=== PATIENT | female | born 1990 | race Caucasian/White ===

== ENCOUNTER → 2017-05-09 13:58 | Outpatient (CLI) | payer OTHER, SELFPAY ==
--- NOTE | 2017-05-09 14:04 | US_ITS ---
US OB transvaginal HISTORY: ITS.REASON: OB US FOR DATES ORDERING PHYSICIAN: Toni Rivera MD PATIENT AGE: 26 years COMPARISON: None FINDINGS: An intrauterine gestational sac is present with a pole with a crown-rump length of 2.02cm correlating to gestational age of 8 weeks 5 days. heart tones are present. Yolk sac is noted. The estimated due date by ultrasound is 12/14/2017. Adnexa: Unremarkable. IMPRESSION: Live intrauterine gestation at 8 weeks 5 days as described above.
== END ==
PROVIDERS: Family Provider Emergency Medicine; PCP Nurse Practitioner Obstetrics & Gynecology; Visit Provider Nurse Practitioner Obstetrics & Gynecology
DX: O26.841 Uterine size-date discrepancy, first trimester (principal)
CPT/HCPCS: 76830

== ENCOUNTER 2017-06-20 13:18 | Emergency (ER) | payer OTHER, SELFPAY ==
[2017-06-20 14:01] VITALS: BP 115/71; PULSE 85; RESP 20; TEMP 36.6; O2SAT 98; BMI 21.9
--- NOTE | 2017-06-20 14:40 | HMH.EDUTC ---
[place] Disposition Clinical Impression: Nasal congestion with rhinorrhea, Cough Qualifiers: Weeks of gestation: 14 weeks Qualified Code(s): Z3A.14 - 14 weeks gestation of Disposition: Home, Self-Care Condition on Discharge: Good Instructions: DI for Viral Upper Respiratory Infection -- Adult Additional Instructions: * Use caution in any medication you take. you MUST ensure it is safe for baby and you. * The attached education is for everyone with upper respiratory viruses, not specifically women so if it suggest medication, be sure to make sure it is safe. * Your symptoms could be viral but they could be related to hormones as well. Viruses can take 7-14 days to run its course. * sinus rinses * Monitor Temp. FU if fever develops * Encourage fluids, water, gatorade, powerade, pedialyte if infant/toddler/child * If sore throat, warm salt water gargles, warm fluids, sore throat lozenges * sleep elevated * humidifier/vaporizer * Ask Dr. Rivera if he approves of any decongestants and flonase. If so, 2 sprays each nostril daily but may take 2-3 days to notice improvement with it. Prescriptions: Fluticasone Propionate [Flonase 50mcg nasal spray 16gm] 2 spr NS DAILY #1 bottle Referrals: Tnoi Rivera MD [Staff Physician] - (Return to clinic IMMEDIATELY for new or worsening symptoms OR no noticeable improvement over the next 48-72 hours. 911 for difficulty breathing or swallowing. Call Dr. Butcher today regarding medications. She him immediately for ANY abdominal pain, leaking, bleeding, change in baby movement. ) Forms: Work/School Release Time of Disposition: 15:00 Medical Decision Making Vital Signs: 06/20/17 14:01 Temperature 97.9 F Temperature Source Temporal Artery Scan Pulse Rate [Right Brachial] 85 Respiratory Rate 20 Blood Pressure [Right Arm] 115/71 Blood Pressure Mean [Right Arm] 85 Blood Pressure Source [Right Arm] Automatic Cuff Blood Pressure Position [Right Arm] Sitting 02 Sat by Pulse Oximetry 98 Oxygen Delivery Method Room Air - Paulie Inquiry Pt receiving controlled substance: No [place] HPI - General Stated complaint: cough congestion Time Seen by Provider: 06/20/17 14:40 Mode of Arrival: Ambulatory Source of Information: Patient Limitations: No Limitations Description of Symptoms (Recalled from Triage Doc. by RN): CHEST AND SINUS CONGESTION HEENT Symptoms (Recalled from RN notes): No Resp Symptoms (Recalled from RN notes): Yes (CHEST AND SINUS CONGESTION) Skin Symptoms (Recalled from RN notes): No MS Symptoms (Recalled from RN notes): No Functional Status (Recalled from RN notes): N/A - History of Present Illness Provider Complaint: c/o nasal congestion, rhinorrhea, head pressure and cough x 5-6 days. Cough worse at night. Robitussin helps but restless at night. Always that way when I take cough syrups . Humidifier/vaporizer has helped with nasal congestion but not head pressure or nose pouring . Currently 14.5 weeks . Denies abdominal pain, vaginal leaking or bleeding. Barely feeling baby movment but unchanged since feeling sick. - Related Data Home Medications Medication Instructions Recorded Confirmed dicyclomine 20 mg tablet 20 mg PO QID 05/21/17 1 tab PO QDAY 05/21/17 vitamin,calcium,svpvngxx-mmqn-qnwup acid tablet Previous Rx's Medication Instructions Recorded Fluticasone Propionate [Flonase 2 spr NS DAILY #1 bottle 06/20/17 50mcg nasal spray 16gm] Allergies Allergy/AdvReac Type Severity Reaction Status Date / Time No Known Allergies Allergy Verified 06/20/17 14:11 - Worker's Comp Is this a Worker's Comp case?: No [facility] History I have reviewed the patient's past medical history: Yes Medical History: Denies:: Cancer, Diabetes Mellitus Type 1, Diabetes Mellitus Type 2, MRSA Other Medical History: Reports: Other (colitis) Other Surgeries: Yes: Other (leap, dental, tubes in ears) Amputat
--- NOTE | 2017-06-20 14:52 | ED_ITS ---
[facility] [place] Clinical Impression: Nasal congestion with rhinorrhea, Cough Qualifiers: Weeks of gestation: 14 weeks Qualified Code(s): Z3A.14 - 14 weeks gestation of Disposition: Home, Self-Care Condition on Discharge: Good Instructions: DI for Viral Upper Respiratory Infection -- Adult Additional Instructions: * Use caution in any medication you take. you MUST ensure it is safe for baby and you. * The attached education is for everyone with upper respiratory viruses, not specifically women so if it suggest medication, be sure to make sure it is safe. * Your symptoms could be viral but they could be related to hormones as well. Viruses can take 7-14 days to run its course. * sinus rinses * Monitor Temp. FU if fever develops * Encourage fluids, water, gatorade, powerade, pedialyte if infant/toddler/ child * If sore throat, warm salt water gargles, warm fluids, sore throat lozenges * sleep elevated * humidifier/vaporizer * Ask Dr. Rivera if he approves of any decongestants and flonase. If so, 2 sprays each nostril daily but may take 2-3 days to notice improvement with it. Prescriptions: Fluticasone Propionate [Flonase 50mcg nasal spray 16gm] 2 spr NS DAILY #1 bottle Referrals: Toni Rivera MD [Staff Physician] - (Return to clinic IMMEDIATELY for new or worsening symptoms OR no noticeable improvement over the next 48-72 hours. 911 for difficulty breathing or swallowing. Call Dr. Butcher today regarding medications. She him immediately for ANY abdominal pain, leaking, bleeding, change in baby movement. ) Forms: Work/School Release Time of Disposition: 15:00 Medical Decision Making Vital Signs: 06/20/17 14:01 Temperature 97.9 F Temperature Source Temporal Artery Scan Pulse Rate [Right Brachial] 85 Respiratory Rate 20 Blood Pressure [Right Arm] 115/71 Blood Pressure Mean [Right Arm] 85 Blood Pressure Source [Right Arm] Automatic Cuff Blood Pressure Position [Right Arm] Sitting 02 Sat by Pulse Oximetry 98 Oxygen Delivery Method Room Air - Paulie Inquiry Pt receiving controlled substance: No [facility] [place] - General Stated complaint: cough congestion Time Seen by Provider: 06/20/17 14:40 Mode of Arrival: Ambulatory Source of Information: Patient Limitations: No Limitations Description of Symptoms (Recalled from Triage Doc. by RN): CHEST AND SINUS CONGESTION HEENT Symptoms (Recalled from RN notes): No Resp Symptoms (Recalled from RN notes): Yes (CHEST AND SINUS CONGESTION) Skin Symptoms (Recalled from RN notes): No MS Symptoms (Recalled from RN notes): No Functional Status (Recalled from RN notes): N/A - History of Present Illness Provider Complaint: c/o nasal congestion, rhinorrhea, head pressure and cough x 5-6 days. Cough worse at night. Robitussin helps but restless at night. Always that way when I take cough syrups . Humidifier/vaporizer has helped with nasal congestion but not head pressure or nose pouring . Currently 14.5 weeks . Denies abdominal pain, vaginal leaking or bleeding. Barely feeling baby movment but unchanged since feeling sick. - Related Data Home Medications Medication Instructions Recorded Confirmed dicyclomine 20 mg tablet 20 mg PO QID 05/21/17 1 tab PO QDAY 05/21/17 vitamin,calcium,gbfvzemg-cerx-qkgex acid tablet Previous Rx's Medication Instructions Recorded Fluticasone Pr
[2017-06-20 15:01] VITALS: BP 122/78; PULSE 89; RESP 20; TEMP 36.9; O2SAT 100
== END 2017-06-20 15:02 | disposition home or self-care (01) ==
PROVIDERS: Emergency Provider Nurse Practitioner Family; Family Provider Emergency Medicine; PCP Emergency Medicine
DX: J34.89 Other specified disorders of nose and nasal sinuses (principal); R05 Cough; Z3A.14 14 weeks gestation of pregnancy; F17.210 Nicotine dependence, cigarettes, uncomplicated
CPT/HCPCS: 99202

== ENCOUNTER → 2017-08-01 14:20 | Outpatient (CLI) | payer OTHER, SELFPAY ==
--- NOTE | 2017-08-01 14:22 | US_ITS ---
US OB /maternal detail: INDICATION: Anatomy exam ITS.REASON: US OB Complete ORDERING PHYSICIAN: Toni Rivera MD PATIENT AGE: 26 years TECHNIQUE: ultrasound transabdominal scanning. COMPARISON: No previous relevant studies. FINDINGS: Single viable intrauterine gestation. breech position. Placenta: anterior placenta grade 1. There is adequate amount fluid. The cervix appears satisfactory. Closed and measuring 3 cm all in length. Complete survey performed and was unremarkable on the submitted images as in PACS. No discrete anomalies identified on survey imaging by technologist. Active fetus. Three-vessel cord with satisfactory umbilical cord insertion. 4- chamber heart noted. Survey of brain & ventricles. Face and neck survey unremarkable. Diaphragm and chest views unremarkable. Abdomen: Both kidneys noted and unremarkable. Stomach noted and satisfactory. Spine: Survey of the spine satisfactory with no anomalies identified nor imaged. Both arms and legs noted. Amniotic Fluid: Adequate. Maternal adnexa: No significant findings. Measurements: Average ultrasound age 20w5d. Gestational Age 20w5d. Estimated due date by ultrasound age 0812/14/2017. Estimated weight 373 grams. This is 46% based on last menstrual period BPD = 20w3d OFD = 22w2d HC = 20w6d AC = 21w0d FL = 20w4d Heart Rate = 140 Cerebellum = 21w1d Humerus = 20w4d HC/AC is 1.17(1.09-1.26). CI is 69% (70-86%). FL/BPD is 70%. FL/AC is 21%. IMPRESSION: Single live fetus in breech presentation with average ultrasound age of 20 weeks 5 days. No obvious anomalies. Estimated due date by ultrasound is 12/14/2017. Please see above for detail
== END ==
PROVIDERS: Family Provider Emergency Medicine; PCP Emergency Medicine; Visit Provider Nurse Practitioner Obstetrics & Gynecology
DX: Z36.0 Encounter for antenatal screening for chromosomal anomalies (principal)
CPT/HCPCS: 76811

== ENCOUNTER 2017-09-12 09:03 | Outpatient (CLI) | payer OTHER, SELFPAY ==
[2017-09-12 13:00] VITALS: BP 119/58; PULSE 78; RESP 18; TEMP 36.9; O2SAT 100
== END 2017-09-12 13:10 | disposition home or self-care (01) ==
LOC: LAB 09:03
PROVIDERS: Visit Provider Nurse Practitioner Obstetrics & Gynecology
DX: Z34.90 Encounter for supervision of normal pregnancy, unspecified, unspecified trimester (principal)
CPT/HCPCS: 36415; 96372; J2790

== ENCOUNTER → 2017-10-16 13:19 | Outpatient (CLI) | payer OTHER, SELFPAY ==
--- NOTE | 2017-10-16 | US_ITS ---
US OB biophysical profile, US OB follow up, US SD Ratio umbilcal artery: Indication: ITS.REASON: US OB BPP Growth for SGA ORDERING PHYSICIAN: Toni Rivera MD PATIENT AGE: 26 years COMPARISON: 3 0304 FINDINGS: The following parameters are obtained: Average ultrasound age is 32 weeks 1 day. Estimated due date by ultrasound is date 818. Estimated weight is 1075 g. This is 52nd percentile based on established due date BPD: 32 weeks 3 days OFD: 33 weeks 3 days HC: 32 weeks 5 days AC: 32 weeks 4 days FL: 30 weeks 5 days heart rate: 139 bpm. HC/AC: 1.04 Cephalic index: 76% FL/BPD: 73% FL/AC: 21% Amniotic fluid index: 9.6 cm Qualitative AFV: 2 breathing movements: 2 Gross body movements: 2 Tone: 2 Biophysical profile score: 8/8 Doppler evaluation of the umbilical artery: SD ratio: SD ratio Resistive index: 0.56 No obvious anomalies evident. Placenta: Anterior and grade 1 Cervix: Appears closed and measures 3 cm IMPRESSION: There is a single live fetus present which is in cephalic presentation. Biophysical profile is 8 of 8. TARA is toward the lower limits of normal at 10 cm. Average ultrasound age is 32 weeks 1 day with an estimated due date by ultrasound of 12/10/2017. There has been adequate progression compared to the previous exam. weight is 1875 g which is 52nd percentile based on established due date
== END ==
PROVIDERS: Family Provider Emergency Medicine; PCP Emergency Medicine; Visit Provider Nurse Practitioner Obstetrics & Gynecology
DX: O36.5131 Maternal care for known or suspected placental insufficiency, third trimester, fetus 1 (principal)
CPT/HCPCS: 76816; 76819; 76820

== ENCOUNTER → 2017-11-13 19:12 | Outpatient (REF) | payer OTHER, SELFPAY | LOC: LAB 19:12 | PROVIDERS: Visit Provider Nurse Practitioner Obstetrics & Gynecology | DX: Z34.90 Encounter for supervision of normal pregnancy, unspecified, unspecified trimester (principal) | CPT/HCPCS: 86403 ==

== ENCOUNTER → 2017-11-25 09:48 | Outpatient (CLI) | payer OTHER, SELFPAY ==
--- NOTE | 2017-11-25 09:51 | US_ITS ---
US OB biophysical profile: Indication: SGA ITS.REASON: US OB- BPP Growth- SGA ORDERING PHYSICIAN: Toni Rivera MD PATIENT AGE: 26 years FINDINGS: The following parameters are obtained: Average ultrasound age is 36 weeks 3 days. Estimated due date by ultrasound is 12/20/2017. Estimated weight is 6 lbs. 9 oz. +/- 15 ounces BPD: 8.79 cm equaling 35 weeks 4 days OFD: 11.55 cm HC: 32.24 cm equaling 36 weeks 3 days AC: 33.11 cm equaling 37 weeks 1 day FL: 7.03 cm equaling 36 weeks 1 day heart rate: 134 bpm HC/AC: HC/AC Cephalic index: Cephalic index FL/BPD: FL/BPD FL/AC: FL/AC Amniotic fluid index: 10.93 cm Qualitative AFV: 2 breathing movements: 2 Gross body movements: 2 Tone: 2 Biophysical profile score: 8/8 Doppler evaluation of the umbilical artery: SD ratio: 2.5 Resistive index: 0.60 No obvious anomalies evident. Placenta: Placenta is a somewhat curious small area of increased echogenicity of the placenta near the uterine wall measuring 3.5 x 1.8 cm and possibly representing a small hematoma. Cervix: Appears closed and measures 2.45 cm IMPRESSION: Single live fetus in cephalic presentation with normal progression of measured from the previous exam 10/16/2017 with estimated ultrasound age of 36 weeks and 3 days with no gross abnormality identified
== END ==
PROVIDERS: Family Provider Emergency Medicine; PCP Emergency Medicine; Visit Provider Nurse Practitioner Obstetrics & Gynecology
DX: O36.5131 Maternal care for known or suspected placental insufficiency, third trimester, fetus 1 (principal)
CPT/HCPCS: 76816; 76819; 76820

== ENCOUNTER 2017-12-17 03:29 | Inpatient (IN) ==
[2017-12-17 05:51] LABS: Basophils % 0.3 % (0.1-2.0); Eosinophils # 0.4 K/mm3 (0.0-0.4); Eosinophils % 3.3 % (0.1-12.0); Hematocrit 36.6 % (37.0-47.0); Hemoglobin 12.5 g/dL (12.2-16.2); Lymphocytes # 4.3 K/mm3 (0.7-4.5); Lymphocytes % 35.2 K/mm3 (10-50); Mean Corpuscular Hemoglobin 30.6 pg (27.0-31.2); Mean Corpuscular Volume 89.9 fl (81-99); Mean Platelet Volume 7.4 fl (7.4-10.4); Monocytes # 0.6 K/mm3 (0.1-1.0); Monocytes % 5.1 % (1.7-9.3); Neutrophils # 6.8 K/mm3 (1.8-7.8); Neutrophils % 56.2 % (37.0-80.0); Platelet Count 313 K/mm3 (142-424); Red Blood Count 4.07 M/mm3 (4.20-5.40); Red Cell Distribution Width 13.1 % (11.5-17.5); White Blood Count 12.1 K/mm3 (4.8-10.8)
--- NOTE | 2017-12-17 08:48 | History & Physical Report ---
OB - H&P: HPI Antepartum - History of Present Illness Chief complaint: Post dates History of present illness: She is a 27-year-old 2 para 1 at 40 and 2 weeks gestational age. As result of that she is brought in for induction of labor postdates. She is otherwise healthy lady. She does have hepatitis C. She has a history of drug use. She currently takes Subutex. - History of Present Criteria for establishing EDC:: LMP confirmed by 1st trimester US care: good care Ultrasounds: normal 1st trimester US, normal mid trimester US Obstetrical complications: none Medical complications: other Narrative: She is hepatitis C positive. She takes Subutex. - Labs Blood type: O (-) negative Rubella: immune RPR/VDRL: nonreactive GBS status: positive HBsAG: negative [facility] History I have reviewed the patient's past medical history: Yes Medical History: Reports:: Hepatitis Denies:: Cancer, Diabetes Mellitus Type 1, Diabetes Mellitus Type 2, MRSA Other Medical History: Reports: Other Other Surgeries: Yes: Other Amputation: No Fractures: No - *Social History Educational Level: Completed GED/General Educational Development Smoking Status: Current every day smoker Tobacco Type: cigarettes # Packs/Day (cigarettes): 1 #Yrs smoked (if former smoker): 10 Alcohol Intake: never Substance Use Type: other Last Used Substance: hours (ago) Occupational Status: other Housing: house Household Members: significant other - Psychiatric History Expresses thoughts of harming self/others: None Suicide Plan Description: No Plan *Family Hx:: Cancer, Diabetes Para: 1 Review of Systems - Review of Systems Review of systems:: pertinent systems reviewed and negative unless documented below Meds Home Medications Medication Instructions Recorded Confirmed Type 1 tab PO QDAY 05/21/17 12/17/17 History vitamin,calcium,difhepyz-fpug-hjjsv acid tablet Buprenorphine HCl [Subutex 8mg ODT] 8 mg SL BID 12/17/17 12/17/17 History Ferrous Sulfate 325 mg PO DAILY 12/17/17 12/17/17 History Allergies Allergy/AdvReac Type Severity Reaction Status Date / Time No Known Allergies Allergy Verified 12/15/17 13:35 OB - H&P: Exam - Physical Exam Vital signs: Temp Pulse Resp BP Pulse Ox 98.8 F 88 18 117/75 98 12/17/17 05:10 12/17/17 05:10 12/17/17 05:10 12/17/17 05:10 12/17/17 05:10 - Constitutional no acute distress - Routine HEENT Exam Head: Present: normocephalic Eye: Present: EOMI, PERRL ENT: Present: mucous membranes moist - Routine Neck Exam Present: supple - Routine Respiratory Exam Absent: accessory muscle use (good air entry bilaterally), respiratory distress , wheezes, crackles - Routine Cardiovascular Exam Present: RRR. Absent: murmur - Routine Abdominal Exam Present: soft, normoactive bowel sounds. Absent: tenderness, distended, guarding - Routine Rectal Exam Patient deferred: visual exam, digital exam - Routine Exam Patient deferred: external exam - Routine Extremities Exam Present: full ROM. Absent: cyanosis, edema - Routine Skin Exam Present: intact. Absent: cyanosis - Routine Neurological Exam Present: alert, oriented X3 - Routine Psychiatric Exam Present: normal affect OB - Results - Labs Labs: Short CBC 12/17/17 Range/Units 05:43 WBC 12.1 H (4.8-10.8) K/mm3 Hgb 12.5 (12.2-16.2) g/dL Hct 36.6 L (37.0-47.0) % Plt Count 313 (142-424) K/mm3 OB - A/P Antepartum (1) Post-term Current visit: Yes Status: Acute (2) Positive GBS test Current visit: No Status: Acute (3) Positive urine drug screen Problem details: 05/21: oxycodone 07/14: subutex, morphine, THC 08/21: subutex, morphine 09/18: subutex 09/23: subutex 10/09: subutex Current visit: No Status: Acute (4) Rh negative status during Problem details: O negative; Rhogam 09/12/17 Current visit: No Status: Acute (5) Chronic hepatitis C affecting , antepartum Current visit: No Status: Chronic - Additional Plan Planning to breastfeed?: Yes Plan: induction Additional Information:: She is 40 and 2. I ruptured her membranes and her cervix was 3 cm 75% and station -2. There was clear fluid.
[2017-12-17 09:00] LABS: Amphetamine/Metha Screen,Urine Negative ng/mL (<1000); Barbiturates Screen,Urine Negative ng/mL (<200); Benzodiazepines Screen,Urine Negative ng/mL (<200); Cannabinoid Screen,Urine Negative ng/mL (<50); Cocaine Screen,Urine Negative ng/mL (<300); Methadone Screen,Urine Negative ng/mL (<300); Opiate Screen,Urine Negative ng/mL (<300); Phencyclidine Screen,Urine Negative ng/mL (<25)
[2017-12-17 10:43] LABS: Microscopic, Urine URINE MICROSCOPIC (MICROSCOPIC)
[2017-12-17 10:44] LABS: Appearance,Urine CLEAR (Clear); Bilirubin,Urine Negative (Negative); Blood, Urine Negative (Negative); Color,Urine YELLOW (Yellow); Glucose,Urine (UA) Negative (Negative); Ketones,Urine Negative (Negative); Leukocyte Esterase,Urine Negative (Negative); PH,Urine 7.5 (5.0-8.5); Protein,Urine Negative (Negative); Urobilinogen,Urine 0.2 EU/dl (0.2)
[2017-12-17 10:51] LABS: Bacteria,Urine 1+ /lpf; Squamous Epithelial Cell,Urine 20-50 #/hpf (0-5); WBC,Urine Occasional #/hpf (0-3)
--- NOTE | 2017-12-17 11:22 | Progress Note ---
[facility] Anesthesia Checklist - Patient Identification Patient Identification: Arm Band, Verbal (Name & ) - Structural Data Admitted From: Inpatient Planned Operative Procedure/s: labor epidural Consent for Planned Operative Procedure(s) Verified: Yes Verified Documents: History and Physical - Chart Verification Results Verified: CBC, BMP - Additional verifications Patient : Yes Anesthesia Reactions: No Hx Blood Transfusions: No Blood Transfusion Reaction: No Cephalosporin Allergy: No Previous Colonoscopy: No - Cardiovascular Assessment Heart Sounds: S1 & S2 Pulse Strength: Baseline Pulse Rhythm: Regular Peripheral Edema: No - Airway Assessment C-Spine Mobility Assessed: Yes TMJ Mobility Assessed: Yes Dentition: Good Dentition - Neurological Assessment Level of Consciousness: Awake, Alert, Appropriate Hx Seizures: No Numbness or tingling in extremities: No - Anesthesia Plan Anesthesia Risk discussed: Yes Anesthesia Plan: Verified ASA Class: II Anesthesia Type: Epidural [facility] Anesthesia HX I have reviewed the patient's past medical history: Yes Medical History: Reports:: Hepatitis Denies:: Cancer, Diabetes Mellitus Type 1, Diabetes Mellitus Type 2, MRSA Other Medical History: Reports: Other Other Surgeries: Yes: Other Amputation: No Fractures: No *Family Hx:: Cancer, Diabetes
--- NOTE | 2017-12-17 11:34 | Progress Note ---
Labor Note - Subjective: Date: 12/17/17 Time: 11:33 regular contraction - Objective: NST:: Reactive Contractions:: every 2-3 minutes Cervical Dilation:: 6 Effacement:: 80% Station: 0 Membranes: artificially ruptured - Fetus: Monitoring?: Yes monitoring type:: External - Assessment: Labor progressing?: Yes Cephalopelvic disproportion?: No Patient Problems: All Active Problems Nasal congestion with rhinorrhea (Acute) Cough (Acute) Post-term (Acute) Positive GBS test (Acute) Tobacco smoking complicating in third trimester (Chronic) Depression (Chronic) H/O LEEP (Chronic) History of chlamydia (Chronic) Chronic hepatitis C affecting , antepartum (Chronic) Rh negative status during (Acute) Mpmyo-kbz-vtunw fetus, third trimester (Acute) Positive urine drug screen (Acute) (Acute) - Plan: Anesthesia for epidural?: Yes Continue to labor down?: Yes Plan for ?: No Continue to monitor?: Yes Start pushing?: No
--- NOTE | 2017-12-17 13:38 | Progress Note ---
Labor Note - Subjective: Date: 12/17/17 Time: 13:37 regular contraction - Objective: NST:: Reactive Contractions:: every 2-3 minutes Cervical Dilation:: 9-10 Effacement:: 100% Station: +1 Membranes: artificially ruptured - Fetus: Monitoring?: Yes monitoring type:: External - Assessment: Labor progressing?: Yes Cephalopelvic disproportion?: No Patient Problems: All Active Problems Nasal congestion with rhinorrhea (Acute) Cough (Acute) Post-term (Acute) Positive GBS test (Acute) Tobacco smoking complicating in third trimester (Chronic) Depression (Chronic) H/O LEEP (Chronic) History of chlamydia (Chronic) Chronic hepatitis C affecting , antepartum (Chronic) Rh negative status during (Acute) Ycilc-xgw-awlio fetus, third trimester (Acute) Positive urine drug screen (Acute) (Acute) - Plan: Anesthesia for epidural?: Yes Continue to labor down?: Yes Plan for ?: No Continue to monitor?: Yes Start pushing?: No Comment:: She just has an anterior lip so we will let the babies had come down just a little more before she starts pushing.
--- NOTE | 2017-12-17 14:11 | Procedure Note ---
- Delivery Note Delivery Date:: 12/17/17 Delivery Time:: 13:53 Anesthesia Type: Epidural Was labor medically induced?: Yes Induction method: per pitocin protocol Infant delivered prior to 39 weeks?: No Gender: Male at 1 minute: 9 at 5 minutes: 9 AF:: Clear fluid Delivery Procedure:: She is a 27-year-old 2 para 1 who was 40 weeks and 2 days gestational age. Since she was postdates we elected to induce her labor. She is also known to have hepatitis C and was group B streptococcus positive. She did receive IV antibiotics while in labor. She was started on IV oxytocin and had her membranes ruptured. Under labor epidural she progressed to full dilation and delivered spontaneously a live born male child at 1:53 PM in the afternoon of December 17, 2017. I deliver the head it was noted that the shoulder was slightly tight so we elected to do suprapubic pressure and this easily released the anterior shoulder. This was followed by the rest of the infant's body atraumatically. I did not apply any traction to the head. After delivery the head the rest of infant's body delivered atraumatically. The baby was stimulated and cried spontaneously. We allow the cord to continue to pulsate for approximately 1 minute and then doubly clamped the cord. The cord was cut and the was then placed on the mother's abdomen for further care. The nurse assigned Apgars of 9 at 1 minute and 9 at 5 minutes. We then obtained cord blood as well as cord pH. Using gentle traction on the cord and countertraction of the fundus I was able to easily deliver the placenta intact. He had a normal three-vessel cord. She had a small left labial laceration as well as a first-degree perineal Laceration that was repaired in the usual fashion. The labial laceration was repaired with 3-0 Vicryl Rapide suture in an interrupted fashion. The perineal laceration was repaired in the usual fashion with 0 Vicryl repeat suture. She has O Rh- blood, she is rubella immune and was group B Streptococcus positive. She did receive IV antibiotics while in labor. Her estimated blood loss was approximately 400 cc. Placental Delivery Description: Spontaneous
[2017-12-18 07:01] LABS: Hematocrit 37.7 % (37.0-47.0); Hemoglobin 12.3 g/dL (12.2-16.2)
--- NOTE | 2017-12-18 08:05 | Progress Note ---
Internal Medicine - PN: Subj *Date: 12/18/17 *Time: 08:04 Interval history: She continues to do well this morning. She is eating and drinking and ambulating. Her lochia is normal. She is bottlefeeding. Exam Vital signs and Labs for Last 24 Hours: Temp Pulse Resp BP Pulse Ox 98.8 F 88 18 117/75 98 12/17/17 05:10 12/17/17 05:10 12/17/17 05:10 12/17/17 05:10 12/17/17 05:10 Laboratory Results - last 24 hr 12/17/17 05:30: Urine Opiates Screen Negative, Urine Methadone Screen Negative, Ur Barbituates Screen Negative, Ur Phencyclidine Scrn Negative, Ur Amphetamines Screen Negative, U Benzodiazepines Scrn Negative, Urine Cocaine Screen Negative , U Marijuana (THC) Screen Negative 12/17/17 05:30: Urine Color Yellow, Urine Appearance Clear, Urine pH 7.5, Ur Specific Dafter 1.010, Urine Protein Negative, Urine Glucose (UA) Negative, Urine Ketones Negative, Urine Blood Negative, Urine Nitrate Negative, Urine Bilirubin Negative, Urine Urobilinogen 0.2, Ur Leukocyte Esterase Negative, Urine RBC None, Urine WBC Occasional, Ur Squamous Epith Cells 20-50, Urine Bacteria 1+ 12/17/17 14:16: Cord ABG pH 7.20 L* 12/18/17 06:45: Hgb 12.3, Hct 37.7 I & O for Last 24 hours: Intake & Output 12/15/17 12/16/17 12/17/17 12/18/17 11:59 11:59 11:59 11:59 Weight 125 lb - Constitutional no acute distress Assessment and Plan (1) Post-term Current visit: Yes Status: Acute Category: Medical Code(s): O48.0 - Post- term (2) Positive GBS test Current visit: No Status: Acute Category: Medical Code(s): B95.1 - Streptococcus, group B, as the cause of diseases classified elsewhere (3) Positive urine drug screen Problem details: 05/21: oxycodone 07/14: subutex, morphine, THC 08/21: subutex, morphine 09/18: subutex 09/23: subutex 10/09: subutex Current visit: No Status: Acute Category: Medical Code(s): R82.5 - Elevated urine levels of drugs, medicaments and biological substances (4) Rh negative status during Problem details: O negative; Rhogam 09/12/17 Current visit: No Status: Acute Category: Medical Code(s): O09.899 - Supervision of other high risk pregnancies, unspecified trimester; Z67.91 - Unspecified blood type, Rh negative (5) Chronic hepatitis C affecting , antepartum Current visit: No Status: Chronic Category: Medical Code(s): O98.419 - Viral hepatitis complicating , unspecified trimester; B18.2 - Chronic viral hepatitis C - Assessment and plan all Dx Assessment and Plan for all problems:: She continues to do well and we will plan to send her home tomorrow.
--- NOTE | 2017-12-19 08:21 | Discharge Summary ---
General - General Admission date:: 12/17/17 Discharge date: 12/19/17 HPI HPI: She is a 27-year-old 2 now para 2 who is 40 and 4 weeks gestational age. We brought her in postdates for induction of labor. She is hepatitis C positive from previous drug use and takes Subutex daily. Hospital Course Hospital Course: She was started on IV oxytocin and had her membranes ruptured. She progressed to full dilation and delivered spontaneously a live born male child at 1:53 PM in the afternoon of December 17, 2017. The baby weighed 7 lbs. 7 oz. and was 20 inches long. He had Apgars of 9 at 1 minute and 9 at 5 minutes. She had a small vaginal laceration. She has O Rh- blood and has received RhoGam. She is rubella immune and was group B Streptococcus positive. She did receive IV antibiotics while in labor. Since she was taking Subutex the baby is showing some signs of withdrawal and we will probably continue to watch the baby for now. She will also be seen by professor of social work and she was initially taking Subutex off the street in her early part of . She is discharged home today to follow-up with me in approximately 2 weeks time. She will continue with her Subutex and her predominance and iron. She was given usual instructions with respect to limiting her activity, driving and sexual activity. Objective Vital signs: Temp Pulse Resp BP Pulse Ox 98.8 F 88 18 117/75 98 12/17/17 05:10 12/17/17 05:10 12/17/17 05:10 12/17/17 05:10 12/17/17 05:10 no acute distress Results Labs on day of discharge: Labs from last 24 hours 12/18/17 11:30 Rhogam Infusion Rhogam release DS: Diagnosis - Discharge Diagnosis (1) Post-term Status: Acute (2) Positive GBS test Status: Acute (3) Positive urine drug screen Status: Acute Problem details: 05/21: oxycodone 07/14: subutex, morphine, THC 08/21: subutex, morphine 09/18: subutex 09/23: subutex 10/09: subutex (4) Rh negative status during Status: Acute Problem details: O negative; Rhogam 09/12/17 (5) Chronic hepatitis C affecting , antepartum Status: Chronic Discharge Plan - Patient Discharge Instructions ACTIVITY: No heavy lifting DIET: continue same diet - Follow up Plan Disposition: Home, Self-Correction Medications: Home Medications Medication Instructions Recorded Confirmed Type 1 tab PO DAILY 05/21/17 12/17/17 History vitamin,calcium,ujxkqsvv-dqug-pybwg acid tablet Buprenorphine HCl [Subutex 8mg ODT] 8 mg SL BID 12/17/17 12/17/17 History Dicyclomine HCl 20 mg PO QID 12/17/17 12/17/17 History Ferrous Sulfate 325 mg PO DAILY 12/17/17 12/17/17 History Prescriptions/Medication Reconciliation: Continue vitamin,calcium,hdhhbiuc-nqxf-ktnzt acid tablet 1 tab PO DAILY Buprenorphine HCl [Subutex 8mg ODT] 8 mg SL BID Dicyclomine HCl 20 mg PO QID Ferrous Sulfate 325 mg PO DAILY
[2017-12-19 08:48] VITALS: BP 109/63
== END 2017-12-19 11:00 | disposition home or self-care (01) ==
LOC: OB 04:56
PROVIDERS: ADMIT Obstetrics & Gynecology; ATTEND Nurse Practitioner Obstetrics & Gynecology

== ENCOUNTER → 2018-02-19 15:09 | Outpatient (CLI) | payer MEDICAID, SELFPAY ==
--- NOTE | 2018-02-19 16:14 | XR_ITS ---
EXAM: XR cervical spine 5V HISTORY: Bilateral hand numbness and tingling and swelling ITS.REASON: numbness bilateral hands ORDERING PHYSICIAN: KENYETTA Steel PATIENT AGE: 27 years COMPARISON: None FINDINGS: Normal alignment. No fracture or dislocation. No lytic or blastic change. No significant degenerative change. The disc spaces are preserved. The foramina are patent There is mild prominence of the transverse process on the right at C7. IMPRESSION: No acute finding Mildly prominent transverse process on the right at C7
[2018-02-19 19:25] LABS: C-Reactive Protein < 0.2 mg/L (0.0-0.9)
[2018-02-19 20:11] LABS: Basophils # 0.1 K/mm3 (0-0.2); Basophils % 0.5 % (0.1-2.0); Eosinophils # 0.5 K/mm3 (0.0-0.4); Eosinophils % 4.8 % (0.1-12.0); Hematocrit 43.3 % (37.0-47.0); Hemoglobin 14.4 g/dL (12.2-16.2); Lymphocytes # 4.9 K/mm3 (0.7-4.5); Mean Corpuscular HGB Conc 33.3 g/dL (31.8-35.4); Monocytes # 0.5 K/mm3 (0.1-1.0); Monocytes % 4.9 % (1.7-9.3); Neutrophils % 40.7 % (37.0-80.0); Platelet Count 344 K/mm3 (142-424); Red Blood Count 4.97 M/mm3 (4.20-5.40); White Blood Count 9.9 K/mm3 (4.8-10.8)
[2018-02-19 20:31] LABS: Alanine Aminotransferase 44 U/L (12-78); Albumin/Globulin Ratio 1.2 (1.1-1.8); Alkaline Phosphatase 89 U/L (46-116); Anion Gap 14.1 mEq/L (5-15); Aspartate Amino Transferase 30 U/L (15-37); Bilirubin,Total 0.3 mg/dL (0.2-1.0); Blood Urea Nitrogen 8 mg/dL (7-18); Calcium 9.1 mg/dL (8.5-10.1); Carbon Dioxide 27 mmol/L (21.0-32.0); Chloride 105 mmol/L (98-107); Chol/HDL Ratio 5.1 (1-3.5); Cholesterol 152 mg/dL (140-200); Creatinine,Serum 0.71 mg/dL (0.55-1.02); Estimated Glomerular Filt Rate 97 ml/min (>60); GFR (African American) 118 ML/MIN (>60); Globulin 3.3 gm/dl (1.3-3.2); Glucose 85 mg/dL (74-106); HDL Cholesterol 30 mg/dL (29-89); LDL Cholesterol 77 mg/dL (0-130); Potassium 4.1 mmoL/L (3.5-5.1); Sodium 142 mmol/L (136-145); T4 (Thyroxine) 9.8 ug/dl (4.7-13.3); Thyroid Stimulating Hormone 1.22 uIU/ml (0.358-3.740); Total Protein,Serum 7.3 gm/dL (6.4-8.2); Triglycerides 226 mg/dL (30-200); VLDL Cholesterol 45 mg/dL (0-40)
[2018-02-19 20:45] LABS: Erythrocyte Sedimentation Rate 4 mm/hr (0-20)
[2018-02-21 10:21] LABS: Vitamin D 25 Hydroxy 33.7 ng/mL (30.0-100.0)
[2018-02-24 14:56] LABS: Anti-DNA (DS) Ab Qn <1 IU/mL
[2018-02-24 14:59] LABS: RNP Antibodies <0.2 AI
[2018-02-24 15:00] LABS: Anti-Smith Antibody <0.2 AI
[2018-02-24 15:01] LABS: Antiscleroderma-70 Antibodies <0.2 AI
[2018-02-24 15:02] LABS: Antichromatin Antibodies <0.2 AI; Sjogren's Anti-SS-A <0.2 AI
[2018-02-24 15:04] LABS: Anti-Centromere B Antibodies <0.2 AI; Anti-Jo-1 <0.2 AI
[2018-02-25 15:54] LABS: Vitamin B12 1098 pg/mL (232-1245)
== END ==
LOC: LAB 15:09 → RAD 16:16
PROVIDERS: PCP Physician Assistant; Visit Provider Physician Assistant
DX: R20.0 Anesthesia of skin (principal); R20.2 Paresthesia of skin; M25.50 Pain in unspecified joint
CPT/HCPCS: 72050; 80053; 80061; 82607; 82652; 84436; 84443; 85025; 85651; 86140; 86200; 86225; 86235; 86431

== ENCOUNTER → 2018-02-19 17:47 | Outpatient (CLI) | payer MEDICAID, SELFPAY | PROVIDERS: PCP Physician Assistant; Visit Provider Physician Assistant | DX: R20.0 Anesthesia of skin (principal) | CPT/HCPCS: 85651; 86140; 86200; 86225; 86235; 86431 ==

== ENCOUNTER → 2018-02-20 10:28 | Outpatient (CLI) | payer MEDICAID, SELFPAY | PROVIDERS: PCP Physician Assistant; Visit Provider Physician Assistant | DX: M25.50 Pain in unspecified joint (principal) ==

== ENCOUNTER → 2018-05-18 10:11 | Outpatient (POV) | payer MEDICAID, SELFPAY | PROVIDERS: Visit Provider Specialist | DX: M25.539 Pain in unspecified wrist (principal) | CPT/HCPCS: 95886; 95910 ==

== ENCOUNTER → 2018-07-24 09:22 | Outpatient (CLI) | payer MEDICAID, SELFPAY ==
--- NOTE | 2018-07-24 09:26 | XR_ITS ---
XR wrist LT min 3V HISTORY ITS.REASON: left wrist pain ORDERING PHYSICIAN: Theron Levine MD PATIENT AGE: 27 years Comparison: None FINDINGS: No fracture or dislocation. No lytic or blastic change. There is normal mineralization.. The joint spaces are well-preserved. No significant degenerative/arthritic changes. No erosive changes evident.. IMPRESSION: Negative wrist
== END ==
PROVIDERS: PCP Emergency Medicine; Visit Provider Orthopaedic Surgery
DX: M25.532 Pain in left wrist (principal)
CPT/HCPCS: 73110

== ENCOUNTER 2018-08-03 13:06 | Outpatient (RCR) | payer MEDICAID, SELFPAY | END 2018-08-03 13:10 | disposition home or self-care (01) | LOC: OT 13:06 | PROVIDERS: Visit Provider Orthopaedic Surgery | DX: G56.03 Carpal tunnel syndrome, bilateral upper limbs (principal); M65.4 Radial styloid tenosynovitis [de Quervain]; M65.331 Trigger finger, right middle finger; M25.532 Pain in left wrist | CPT/HCPCS: 97763 ==

== ENCOUNTER → 2018-10-14 15:53 | Outpatient (CLI) | payer MEDICAID, SELFPAY ==
[2018-10-14 16:09] LABS: Basophils # 0.1 K/mm3 (0-0.2); Basophils % 0.5 % (0.1-2.0); Eosinophils # 0.6 K/mm3 (0.0-0.4); Eosinophils % 5.5 % (0.1-12.0); Hematocrit 42.2 % (37.0-47.0); Hemoglobin 14.3 g/dL (12.2-16.2); Lymphocytes # 5.5 K/mm3 (0.7-4.5); Lymphocytes % 50.1 % (10-50); Mean Corpuscular HGB Conc 33.9 g/dL (31.8-35.4); Mean Corpuscular Hemoglobin 28.2 pg (27.0-31.2); Mean Corpuscular Volume 83.1 fl (81-99); Mean Platelet Volume 6.2 fl (7.4-10.4); Monocytes # 0.3 K/mm3 (0.1-1.0); Monocytes % 3.1 % (1.7-9.3); Neutrophils # 4.4 K/mm3 (1.8-7.8); Neutrophils % 40.8 % (37.0-80.0); Platelet Count 349 K/mm3 (142-424); Red Blood Count 5.08 M/mm3 (4.20-5.40); Red Cell Distribution Width 12.1 % (11.5-17.5); White Blood Count 10.9 K/mm3 (4.8-10.8)
[2018-10-14 16:16] LABS: MANUAL DIFFERENTIAL MANUAL DIFFERENTIAL (MANUAL DIFF)
[2018-10-14 17:52] LABS: Alanine Aminotransferase 22 U/L (12-78); Albumin Level 3.9 gm/dL (3.4-5.0); Albumin/Globulin Ratio 1.2 (1.1-1.8); Alkaline Phosphatase 88 U/L (46-116); Aspartate Amino Transferase 17 U/L (15-37); Bilirubin,Total 0.3 mg/dL (0.2-1.0); Blood Urea Nitrogen 7 mg/dL (7-18); Calcium 8.6 mg/dL (8.5-10.1); Carbon Dioxide 26 mmol/L (21.0-32.0); Chloride 104 mmol/L (98-107); Creatinine,Serum 0.74 mg/dL (0.55-1.02); Estimated Glomerular Filt Rate 93 ml/min (>60); GFR (African American) 112 ML/MIN (>60); Globulin 3.3 gm/dl (1.3-3.2); Glucose 93 mg/dL (74-106); Sodium 138 mmol/L (136-145); Total Protein,Serum 7.2 gm/dL (6.4-8.2)
[2018-10-14 18:36] LABS: Eosinophils % 3 % (0-3); Lymphocytes % 48 % (10-50); Monocytes % 4 % (2-9); Neutrophils % 45 % (42-76); Platelet Estimate Normal; RBC Morphology Normal; Total Cells Counted 100
[2018-10-17 11:19] LABS: HCV Genotype Charge YES
== END ==
PROVIDERS: Visit Provider Nurse Practitioner Acute Care
DX: B19.20 Unspecified viral hepatitis C without hepatic coma (principal); Z79.899 Other long term (current) drug therapy
CPT/HCPCS: 36415; 80053; 85007; 85025; 87522; 87902

== ENCOUNTER → 2018-11-25 16:01 | Outpatient (CLI) | payer MEDICAID, SELFPAY ==
[2018-11-25 16:50] LABS: Urine Pregnancy, HCG Qual. Negative (Negative)
[2018-11-25 16:59] LABS: Basophils % 0.4 % (0.1-2.0); Eosinophils # 0.5 K/mm3 (0.0-0.4); Eosinophils % 4.3 % (0.1-12.0); Hematocrit 41.2 % (37.0-47.0); Hemoglobin 13.5 g/dL (12.2-16.2); Lymphocytes # 4.5 K/mm3 (0.7-4.5); Lymphocytes % 41.6 % (10-50); Mean Corpuscular HGB Conc 32.7 g/dL (31.8-35.4); Mean Corpuscular Hemoglobin 27.5 pg (27.0-31.2); Mean Corpuscular Volume 84.1 fl (81-99); Mean Platelet Volume 6.2 fl (7.4-10.4); Monocytes # 0.3 K/mm3 (0.1-1.0); Monocytes % 2.9 % (1.7-9.3); Neutrophils # 5.5 K/mm3 (1.8-7.8); Neutrophils % 50.8 % (37.0-80.0); Platelet Count 308 K/mm3 (142-424); Red Cell Distribution Width 11.9 % (11.5-17.5); White Blood Count 10.8 K/mm3 (4.8-10.8)
[2018-11-25 19:13] LABS: Alanine Aminotransferase 15 U/L (12-78); Albumin Level 3.8 gm/dL (3.4-5.0); Albumin/Globulin Ratio 1.2 (1.1-1.8); Alkaline Phosphatase 99 U/L (46-116); Anion Gap 9.7 mEq/L (5-15); Aspartate Amino Transferase 10 U/L (15-37); Bilirubin,Total 0.3 mg/dL (0.2-1.0); Blood Urea Nitrogen 9 mg/dL (7-18); Calcium 8.8 mg/dL (8.5-10.1); Carbon Dioxide 27 mmol/L (21.0-32.0); Chloride 85 mmol/L (98-107); Creatinine,Serum 0.79 mg/dL (0.55-1.02); Estimated Glomerular Filt Rate 86 ml/min (>60); GFR (African American) 104 ML/MIN (>60); Globulin 3.2 gm/dl (1.3-3.2); Glucose 111 mg/dL (74-106); Potassium 5.7 mmoL/L (3.5-5.1); Sodium 116 mmol/L (136-145)
== END ==
PROVIDERS: Visit Provider Nurse Practitioner Acute Care
DX: B19.20 Unspecified viral hepatitis C without hepatic coma (principal); Z79.899 Other long term (current) drug therapy
CPT/HCPCS: 36415; 80053; 81025; 85025

== ENCOUNTER → 2018-12-01 16:18 | Outpatient (CLI) | payer MEDICAID, SELFPAY ==
[2018-12-01 16:59] LABS: Urine Pregnancy, HCG Qual. Negative (Negative)
[2018-12-01 17:06] LABS: Basophils # 0.1 K/mm3 (0-0.2); Basophils % 0.5 % (0.1-2.0); Eosinophils # 0.4 K/mm3 (0.0-0.4); Eosinophils % 3.7 % (0.1-12.0); Hematocrit 40.4 % (37.0-47.0); Hemoglobin 13.4 g/dL (12.2-16.2); Lymphocytes # 4.9 K/mm3 (0.7-4.5); Mean Corpuscular HGB Conc 33.2 g/dL (31.8-35.4); Mean Corpuscular Hemoglobin 28.7 pg (27.0-31.2); Mean Corpuscular Volume 86.4 fl (81-99); Mean Platelet Volume 6.3 fl (7.4-10.4); Monocytes # 0.3 K/mm3 (0.1-1.0); Monocytes % 2.7 % (1.7-9.3); Neutrophils # 4.6 K/mm3 (1.8-7.8); Neutrophils % 45.1 % (37.0-80.0); Platelet Count 291 K/mm3 (142-424); Red Blood Count 4.67 M/mm3 (4.20-5.40); Red Cell Distribution Width 12.1 % (11.5-17.5); White Blood Count 10.3 K/mm3 (4.8-10.8)
[2018-12-01 17:11] LABS: INR 1.03 (0.9-1.1); Prothrombin Time 10.7 seconds (9.4-11.8)
[2018-12-01 19:55] LABS: Alanine Aminotransferase 16 U/L (12-78); Albumin Level 3.8 gm/dL (3.4-5.0); Albumin/Globulin Ratio 1.3 (1.1-1.8); Alkaline Phosphatase 90 U/L (46-116); Anion Gap 10.3 mEq/L (5-15); Aspartate Amino Transferase 10 U/L (15-37); Bilirubin,Total 0.3 mg/dL (0.2-1.0); Blood Urea Nitrogen 7 mg/dL (7-18); Calcium 8.9 mg/dL (8.5-10.1); Carbon Dioxide 28 mmol/L (21.0-32.0); Chloride 107 mmol/L (98-107); Estimated Glomerular Filt Rate 84 ml/min (>60); GFR (African American) 102 ML/MIN (>60); Glucose 94 mg/dL (74-106); Potassium 4.3 mmoL/L (3.5-5.1); Sodium 141 mmol/L (136-145); Total Protein,Serum 6.8 gm/dL (6.4-8.2)
== END ==
PROVIDERS: Visit Provider Nurse Practitioner Acute Care
DX: B19.20 Unspecified viral hepatitis C without hepatic coma (principal); Z79.899 Other long term (current) drug therapy
CPT/HCPCS: 36415; 80053; 81025; 85025; 85610; 87522

== ENCOUNTER → 2018-12-23 15:35 | Outpatient (CLI) | payer MEDICAID, SELFPAY ==
[2018-12-23 16:01] LABS: INR 1.03 (0.9-1.1); Prothrombin Time 10.7 seconds (9.4-11.8)
[2018-12-23 16:06] LABS: Urine Pregnancy, HCG Qual. Negative (Negative)
[2018-12-23 16:16] LABS: Basophils # 0.1 K/mm3 (0-0.2); Basophils % 0.5 % (0.1-2.0); Eosinophils # 0.6 K/mm3 (0.0-0.4); Hematocrit 44.4 % (37.0-47.0); Hemoglobin 14.6 g/dL (12.2-16.2); Lymphocytes # 5.2 K/mm3 (0.7-4.5); Lymphocytes % 42.9 % (10-50); Mean Corpuscular HGB Conc 32.9 g/dL (31.8-35.4); Mean Corpuscular Hemoglobin 28.5 pg (27.0-31.2); Mean Corpuscular Volume 86.6 fl (81-99); Mean Platelet Volume 6.4 fl (7.4-10.4); Monocytes # 0.4 K/mm3 (0.1-1.0); Monocytes % 3.2 % (1.7-9.3); Neutrophils # 5.9 K/mm3 (1.8-7.8); Neutrophils % 48.3 % (37.0-80.0); Platelet Count 310 K/mm3 (142-424); Red Blood Count 5.13 M/mm3 (4.20-5.40); Red Cell Distribution Width 12.1 % (11.5-17.5); White Blood Count 12.1 K/mm3 (4.8-10.8)
[2018-12-23 18:10] LABS: Alanine Aminotransferase 16 U/L (12-78); Albumin Level 4.1 gm/dL (3.4-5.0); Albumin/Globulin Ratio 1.2 (1.1-1.8); Alkaline Phosphatase 99 U/L (46-116); Anion Gap 12.1 mEq/L (5-15); Aspartate Amino Transferase 13 U/L (15-37); Bilirubin,Total 0.3 mg/dL (0.2-1.0); Blood Urea Nitrogen 9 mg/dL (7-18); Carbon Dioxide 28 mmol/L (21.0-32.0); Chloride 103 mmol/L (98-107); Creatinine,Serum 0.78 mg/dL (0.55-1.02); Estimated Glomerular Filt Rate 87 ml/min (>60); GFR (African American) 105 ML/MIN (>60); Globulin 3.4 gm/dl (1.3-3.2); Glucose 108 mg/dL (74-106); Potassium 4.1 mmoL/L (3.5-5.1); Sodium 139 mmol/L (136-145); Total Protein,Serum 7.5 gm/dL (6.4-8.2)
== END ==
PROVIDERS: Visit Provider Nurse Practitioner Acute Care
DX: B19.20 Unspecified viral hepatitis C without hepatic coma (principal); Z79.899 Other long term (current) drug therapy
CPT/HCPCS: 36415; 80053; 81025; 85025; 85610; 87522

== ENCOUNTER → 2019-01-20 17:30 | Outpatient (CLI) | payer MEDICAID, SELFPAY ==
[2019-01-20 18:09] LABS: Basophils % 0.2 % (0.1-2.0); Eosinophils # 0.5 K/mm3 (0.0-0.4); Hematocrit 34.8 % (37.0-47.0); Hemoglobin 12.6 g/dL (12.2-16.2); Lymphocytes # 0.3 K/mm3 (0.7-4.5); Lymphocytes % 11.8 % (10-50); Mean Corpuscular HGB Conc 36.3 g/dL (31.8-35.4); Mean Corpuscular Hemoglobin 31.5 pg (27.0-31.2); Mean Corpuscular Volume 86.6 fl (81-99); Mean Platelet Volume 6.3 fl (7.4-10.4); Monocytes # 0.2 K/mm3 (0.1-1.0); Neutrophils # 1.5 K/mm3 (1.8-7.8); Platelet Count 242 K/mm3 (142-424); Red Blood Count 4.01 M/mm3 (4.20-5.40); Red Cell Distribution Width 12.2 % (11.5-17.5); White Blood Count 2.6 K/mm3 (4.8-10.8)
[2019-01-20 18:43] LABS: Alanine Aminotransferase 11 U/L (12-78); Albumin Level 4.4 gm/dL (3.4-5.0); Albumin/Globulin Ratio 1.3 (1.1-1.8); Alkaline Phosphatase 108 U/L (46-116); Anion Gap 12.3 mEq/L (5-15); Aspartate Amino Transferase 15 U/L (15-37); Bilirubin,Total 0.3 mg/dL (0.2-1.0); Blood Urea Nitrogen 9 mg/dL (7-18); Calcium 9.4 mg/dL (8.5-10.1); Carbon Dioxide 29 mmol/L (21.0-32.0); Chloride 104 mmol/L (98-107); Creatinine,Serum 0.75 mg/dL (0.55-1.02); Estimated Glomerular Filt Rate 91 ml/min (>60); GFR (African American) 110 ML/MIN (>60); Globulin 3.4 gm/dl (1.3-3.2); Glucose 86 mg/dL (74-106); Potassium 4.3 mmoL/L (3.5-5.1); Sodium 141 mmol/L (136-145); Total Protein,Serum 7.8 gm/dL (6.4-8.2)
[2019-01-21 12:05] LABS: HCG Qualitative, Serum Negative (Negative)
== END ==
PROVIDERS: Visit Provider Nurse Practitioner Acute Care
DX: B19.20 Unspecified viral hepatitis C without hepatic coma (principal); Z79.899 Other long term (current) drug therapy
CPT/HCPCS: 36415; 80053; 84703; 85025; 87522

== ENCOUNTER → 2019-03-18 17:07 | Outpatient (CLI) | payer OTHER, SELFPAY ==
[2019-03-18 17:23] LABS: Urine Pregnancy, HCG Qual. Negative (Negative)
[2019-03-18 17:35] LABS: INR 1.07 (0.9-1.1); Prothrombin Time 11.1 seconds (9.4-11.8)
[2019-03-18 18:47] LABS: Basophils # 0.1 K/mm3 (0-0.2); Basophils % 0.9 % (0.1-2.0); Eosinophils # 0.6 K/mm3 (0.0-0.4); Eosinophils % 5.3 % (0.1-12.0); Hematocrit 44.5 % (37.0-47.0); Hemoglobin 14.5 g/dL (12.2-16.2); Lymphocytes # 5.3 K/mm3 (0.7-4.5); Lymphocytes % 50.3 % (10-50); Mean Corpuscular HGB Conc 32.7 g/dL (31.8-35.4); Mean Corpuscular Hemoglobin 29.3 pg (27.0-31.2); Mean Corpuscular Volume 89.4 fl (81-99); Mean Platelet Volume 7.7 fl (7.4-10.4); Monocytes # 0.3 K/mm3 (0.1-1.0); Monocytes % 2.5 % (1.7-9.3); Neutrophils # 4.3 K/mm3 (1.8-7.8); Platelet Count 274 K/mm3 (142-424); Red Blood Count 4.97 M/mm3 (4.20-5.40); Red Cell Distribution Width 12.2 % (11.5-17.5); White Blood Count 10.6 K/mm3 (4.8-10.8)
[2019-03-18 18:48] LABS: MANUAL DIFFERENTIAL MANUAL DIFFERENTIAL (MANUAL DIFF)
[2019-03-18 19:11] LABS: Eosinophils % 4 % (0-3); Lymphocytes % 49 % (10-50); Monocytes % 2 % (2-9); Neutrophils % 44 % (42-76); Platelet Estimate Normal; Total Cells Counted 100
[2019-03-18 19:12] LABS: RBC Morphology Normal
[2019-03-18 20:20] LABS: Alanine Aminotransferase 11 U/L (12-78); Albumin/Globulin Ratio 1.3 (1.1-1.8); Alkaline Phosphatase 99 U/L (46-116); Anion Gap 11.1 mEq/L (5-15); Aspartate Amino Transferase 14 U/L (15-37); Bilirubin,Total 0.2 mg/dL (0.2-1.0); Blood Urea Nitrogen 6 mg/dL (7-18); Calcium 8.6 mg/dL (8.5-10.1); Carbon Dioxide 27 mmol/L (21.0-32.0); Chloride 104 mmol/L (98-107); Creatinine,Serum 0.69 mg/dL (0.55-1.02); Estimated Glomerular Filt Rate 100 ml/min (>60); GFR (African American) 121 ML/MIN (>60); Globulin 3.1 gm/dl (1.3-3.2); Glucose 114 mg/dL (74-106); Potassium 4.1 mmoL/L (3.5-5.1); Sodium 138 mmol/L (136-145); Total Protein,Serum 7.1 gm/dL (6.4-8.2)
== END ==
PROVIDERS: Visit Provider Nurse Practitioner Acute Care
DX: B19.20 Unspecified viral hepatitis C without hepatic coma (principal); Z79.899 Other long term (current) drug therapy
CPT/HCPCS: 36415; 80053; 81025; 85007; 85025; 85610; 87522

== ENCOUNTER 2021-03-17 15:13 | Emergency (ER) | payer OTHER, SELFPAY ==
[2021-03-17 15:15] VITALS: BP 134/62; PULSE 80; RESP 19; TEMP 36.6; O2SAT 98; BMI 17.2
[2021-03-17 15:49] LABS: UTC Strep Screen (Rapid) Positive (Negative)
--- NOTE | 2021-03-17 15:59 | HMH.EDUTC ---
[facility] – [place], [place] Disposition Clinical Impression: Strep sore throat Disposition: Home, Self-Care Condition on Discharge: Good Instructions: DI for Strep Throat Additional Instructions: Start antibiotics today be sure to take it as ordered with the full length of time although you should start feeling better in 24-48 hours. Change toothbrush and toothpaste 24-48 hours after starting antibiotics Tylenol or Motrin as needed for fever or pain Encourage fluids, water, Gatorade, Powerade, try cold fluids, popsicles, ice cream will make it feel better You are contagious for 24 hours. Avoid kissing anyone, no eating or drinking after anyone. You are contagious. Follow-up the ER for new or worsening symptoms or no noticeable improvement over the next 24-48 hours. Follow-up with PCP this week. Prescriptions: Azithromycin [Zithromax 250mg tab] 250 mg PO DIRECTED #6 tab Prescription Printed Referrals: Bj Honeycutt MD [Primary Care Provider] - Time of Disposition: 16:04 Medical Decision Making - Paulie Inquiry Pt receiving controlled substance: No Vital Signs: 03/17/21 15:15 Temperature 97.8 F Temperature Source Oral Pulse Rate [Right Brachial] 80 Respiratory Rate 19 Blood Pressure [Right Arm] 134/62 Blood Pressure Mean [Right Arm] 86 Blood Pressure Source [Right Arm] Automatic Cuff Blood Pressure Position [Right Arm] Sitting 02 Sat by Pulse Oximetry 98 Oxygen Delivery Method Room Air - Lab Data Lab Results 03/17/21 15:31: Strep Scn Rapid Clinic Positive A [facility] – [place], [place] HPI - General Chief complaint: Urgent Treatment Center Stated complaint: ear pain Time Seen by Provider: 03/17/21 16:00 Mode of Arrival: Ambulatory Source of Information: Patient Limitations: No Limitations Description of Symptoms (Recalled from Triage Doc. by RN): PATIENT C/O EAR AND THROAT PAIN SINCE YESTERDAY HEENT Symptoms (Recalled from RN notes): Yes Resp Symptoms (Recalled from RN notes): No Skin Symptoms (Recalled from RN notes): No MS Symptoms (Recalled from RN notes): No Functional Status (Recalled from RN notes): WNL - History of Present Illness Provider Complaint: 30 yr old female presnets for francisco ear pain and sore throat for 3 days - Related Data Home Medications Medication Instructions Recorded Confirmed buprenorphine 8 mg-naloxone 2 mg 2 tab SUBLINGUAL tab 09/13/20 02/21/21 sublingual tablet Previous Rx's Medication Instructions Recorded Xulane 150 mcg-35 mcg/24 hr 1 patch TRANSDERMA WEEKLY #12 each 09/13/20 transdermal patch NS Azithromycin [Zithromax 250mg 250 mg PO DIRECTED #6 tab 03/17/21 tab] Allergies Allergy/AdvReac Type Severity Reaction Status Date / Time No Known Allergies Allergy Verified 02/21/21 15:37 - Worker's Comp Is this a Worker's Comp case?: No [facility] History - Hepatitis A Screen Drug use history?: No High risk sexual behaviors?: No History of sexually transmitted infection?: No Currently employed?: No Childcare worker?: No Do you have indoor plumbing?: Yes Do you have electricity?: Yes Attestation statement:: This patient has been screened for Hepatitis A risk factors. I have reviewed the patient's past medical history: Yes Medical History: Reports:: Anxiety, Depression, Hepatitis Denies:: Cancer, Diabetes Mellitus Type 1, Diabetes Mellitus Type 2, MRSA, Seizures Other Medical History: Reports: Other. Denies: Blood Transfusion Reaction Comment: COLOITIS Laterality Cases: Bilateral: Myringotomy (Ear Tubes) Other Surgeries: Yes: Other Amputation: No Fractures: No Comment: LEEP by Dr Rivera in 2015. - Social History Smoking Status: Current every day smoker Tobacco Type: cigarettes # Packs/Day (cigarettes): 1 #Yrs smoked (if former smoker): 10 Alcohol Intake: never Alcohol Intake Frequency:: holidays/special occasions only Substance Use Type: former substance user Occupational Status: student Housing: house Household Members: significant othe
[2021-03-17 16:00] VITALS: BP 134/62; PULSE 80; RESP 19; TEMP 36.6; O2SAT 98
== END 2021-03-17 16:08 | disposition home or self-care (01) ==
PROVIDERS: Emergency Provider Nurse Practitioner Family; PCP Emergency Medicine
DX: J02.0 Streptococcal pharyngitis (principal); F41.8 Other specified anxiety disorders; F17.210 Nicotine dependence, cigarettes, uncomplicated
CPT/HCPCS: 87880; 99202; G0463

== ENCOUNTER 2022-10-13 01:12 | Emergency (ER) | payer OTHER, SELFPAY ==
[2022-10-13 01:13] VITALS: BP 166/84; PULSE 82; RESP 16; TEMP 37.1; O2SAT 99; BMI 19.5
--- NOTE | 2022-10-13 01:34 | HMH.EDGENADL ---
Discharge Plan Disposition Patient Disposition: Home, Self-Care Condition: Good Chief Complaint: PAIN Prescriptions Prescriptions: No Action Zafemy 150-35 mcg/24 hr patch weekly 1 patch TD WEEKLY Qty: 12 5RF buprenorphine-naloxone 8-2 mg tablet, sublingual 2 tab SUBLINGUAL Label Comments: DISSOLVE ONE AND ONE-HALF TABLETS UNDER THE TONGUE EVERY DAY Referrals Follow up/Referrals: Esteban Braun MD [Primary Care Provider] - See instructions Activity Restrictions/Add. Instructions Additional Instructions/Restrictions: Arm sling for comfort. Zcny-hju-pwajtok Motrin/Tylenol as needed. Follow-up PCP 1 to 2 days. Clinical Impressions Clinical Impression: Sternoclavicular (joint) (ligament) sprain Discharge ED Provider: Brian Sampson General Adult HPI General Stated complaint: neck/shoulder pain; no known accident Time Seen by Provider: 10/13/22 01:16 Mode of Arrival: Ambulatory Source of Information: Patient and Spouse Limitations: No Limitations History of Present Illness HPI narrative: 31yo F evaluated for right shoulder pain. Patient reports she was attempting to put her 4-year-old child's toys back together and shampooing the carpet when she felt a pop in her shoulder/chest. Has had pain with use of her right upper extremity since that time. Event occurred several hours ago. Ampli-xiwp-ftokyahs. No previous injury to her right upper extremity. No previous surgery to her right upper extremity. Related Data Home Medications Medication Instructions Recorded Confirmed buprenorphine 8 mg-naloxone 2 mg 2 tab sublingual 09/13/20 12/03/21 sublingual tablet Previous Rx's Medication Instructions Recorded norelgestromin 150 mcg-e.estradiol 1 patch transdermal WEEKLY #12 10/05/21 35 mcg/24 hr weekly transderm patches patch (Zafemy) Allergies Allergy/AdvReac Type Severity Reaction Status Date / Time No Known Allergies Allergy Verified 12/03/21 15:01 [facility] Disclaimer: The information contained in this section may have been updated after the patient was seen, as this information can be updated by other users. Social History Smoking Status: Current every day smoker tobacco type: cigarettes packs per day: 1 alcohol intake: never substance use type: former substance user current occupational status: student Travel in the last 8 weeks: None household members: significant other housing: house current occupation: unemployed current occupational exposures/hazards: No ROS Obtained: Yes Systems reviewed as appropriate & no additional complaints except as documented Physical Exam General General appearance: alert and in no apparent distress Head Head exam: atraumatic Eye Eye exam: Present PERRL ENT ENT exam: Present mucous membranes moist Neck Neck exam: Present normal inspection and full ROM; Absent trachea midline or tenderness Chest Chest inspection: Present tenderness (Right clavicular head) Respiratory Respiratory exam: Absent respiratory distress Cardiovascular Cardiovascular exam: Present regular rate and normal rhythm Expanded Upper Extremity Exam Right: Shoulder exam: Present normal inspection and full ROM; Absent tenderness Arm exam: Present normal inspection and full ROM; Absent tenderness Elbow exam: Present normal inspection and full ROM; Absent tenderness Forearm/Wrist exam: Present normal inspection and full ROM; Absent tenderness Back Exam Back exam: Absent tenderness Neurological Exam Neurological exam: Present alert, oriented X3 and CN II-XII intact Psychiatric Psychiatric exam: Present normal affect Skin Skin exam: Present warm and dry Medical Decision Making Medical Records Medical records reviewed: Yes I reviewed the patient's medical records. Paulie Inquiry Pt receiving controlled substance: No Medical Decision Narrative: 31yo F evalua
[2022-10-13 01:43] VITALS: BP 166/84; PULSE 82; RESP 16; TEMP 37.1; O2SAT 98
== END 2022-10-13 01:47 | disposition home or self-care (01) ==
PROVIDERS: Emergency Provider Family Medicine; PCP Family Medicine
DX: S23.420A Sprain of sternoclavicular (joint) (ligament), initial encounter (principal); X50.0XXA Overexertion from strenuous movement or load, initial encounter; F17.210 Nicotine dependence, cigarettes, uncomplicated
CPT/HCPCS: 99283; 99284

== ENCOUNTER → 2022-10-14 11:02 | Outpatient (CLI) | payer OTHER, SELFPAY ==
--- NOTE | 2022-10-14 | XR_ITS ---
FINAL REPORT CLINICAL HISTORY: RT SHOULDER PAIN FINDINGS: RIGHT SHOULDER Three views demonstrate no acute fracture or dislocation. The joint spaces appear normal. The visualized bony structures are well aligned. No soft tissue abnormality is seen. IMPRESSION: No acute process. Reviewed, Interpreted and Dictated by Faustino Good III, MD Transcribed by Trudy Mulligan Authenticated and . [facility]
--- NOTE | 2022-10-14 | XR_ITS ---
FINAL REPORT CLINICAL HISTORY: RT SHOULDER PAIN FINDINGS: Two views of the right clavicle: Two views of the right clavicle fail to reveal any evidence of fracture or dislocation. No significant bony abnormality is identified. IMPRESSION: Unremarkable clavicle Reviewed, Interpreted and Dictated by Faustino Good III, MD Transcribed by Trudy Mulligan Authenticated and . [facility]
== END ==
PROVIDERS: PCP Nurse Practitioner Family; Visit Provider Nurse Practitioner Family
DX: M25.511 Pain in right shoulder (principal)
CPT/HCPCS: 73000; 73030

== ENCOUNTER 2023-01-26 04:55 | Emergency (ER) | payer OTHER, SELFPAY ==
[2023-01-26] VITALS (14 sets, daily range): BP systolic 95–136; BP diastolic 56–93; PULSE 59–134; RESP 17–20; TEMP 36.7–36.8; O2SAT 95–99; BMI 21.4
--- NOTE | 2023-01-26 05:14 | XR_ITS ---
PROCEDURE INFORMATION: Exam: XR Chest Exam date and time: 01/26/2023 5:12 AM Age: 32 years old Clinical indication: Pain; Chest pressure; Additional info: Dysphagia, chest discomfort TECHNIQUE: Imaging protocol: Radiologic exam of the chest. Views: 2 views. COMPARISON: CR CXR CHEST(2 VIEWS-NOT PORTABLE) 02/02/2016 10:11 PM FINDINGS: Lungs: Unremarkable. No consolidation. Left-sided granuloma. Pleural spaces: Unremarkable. No pleural effusion. No pneumothorax. Heart/Mediastinum: Unremarkable. No cardiomegaly. Bones/joints: Unremarkable. IMPRESSION: No acute findings.
--- NOTE | 2023-01-26 05:36 | ECG_ITS ---
APPROVED REPORT Exam: Resting ECG HR:66 bpm ECG Measurements Heart Rate 66 AXES VT 159 P 68 QRSd 92 QRS 83 QT 385 T -14 QTc 398 Conclusion SINUS RHYTHM POSSIBLE RIGHT VENTRICULAR CONDUCTION DELAY [RSR (QR) IN V1/V2] MODERATE T-WAVE ABNORMALITY, CONSIDER INFERIOR ISCHEMIA [-0.1+ mV T-WAVE IN II/aVF] ABNORMAL ECG UNCONFIRMED REPORT Electronically signed by : Chace Nava MD 01/28/2023 20:08:57
--- NOTE | 2023-01-26 05:48 | HMH.EDGENADL ---
Discharge Plan Disposition Patient Disposition: Still a Patient Prescriptions Prescriptions: New nifedipine 30 mg tablet extended release 30 mg PO DAILY Qty: 30 0RF No Action buprenorphine-naloxone 8-2 mg tablet, sublingual 2 tab SUBLINGUAL Patient Comments: DISSOLVE ONE AND ONE-HALF TABLETS UNDER THE TONGUE EVERY DAY Zafemy 150-35 mcg/24 hr patch weekly See Rx Instructions .ROUTE .COMPLEX Qty: 3 0RF Dose Instruction: APPLY 1 PATCH TOPICALLY WEEKLY FOR 3 WEEKS OF A 4-WEEK CYCLE -- FOR EXTERNAL USE ONLY-- Rx Instructions: APPLY 1 PATCH TOPICALLY WEEKLY FOR 3 WEEKS OF A 4-WEEK CYCLE -- FOR EXTERNAL USE ONLY-- Referrals Follow up/Referrals: Esteban Braun MD [Primary Care Provider] - See instructions Clinical Impressions Clinical Impression: Esophageal spasm, Eosinophilia, GERD (gastroesophageal reflux disease), Elevated lipase Stand Alone Forms Stand Alone Forms: Transfer Record - ED Discharge ED Provider: Noe Mendoza General Adult HPI <Sonja Camacho DO - Last Filed: 01/26/23 07:17> General Chief complaint: PAIN Stated complaint: esophegeal spasms Time Seen by Provider: 01/26/23 05:08 Mode of Arrival: Ambulatory Source of Information: Patient Limitations: No Limitations Description of Symptoms (Recalled from ER Triage Doc. by RN): Patient complaint of esophagus spasm for approx 1 month. States it has calmed down a whole lot, but at 350am it woke her up. States she took Omeprazole and Pepto with no relief of symptoms. Patient states that it feels like something is stuck in her chest. History of Present Illness HPI narrative: This patient is a 32-year-old female who has a history of opioid dependence on Suboxone presented to the emergency department for evaluation with concern for esophageal spasms. Patient reports that for the past month now, she has been having intermittent severe esophageal spasms that start in her chest/throat and radiate to her back. She states that they come on suddenly and randomly. She states that she has a lot of acid reflux issues. 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 She has been taking this without significant improvement. She knows no specific triggers, but she does note a lot of intake of caffeine. It does not seem to be related to certain foods. Tonight, it woke her up around 3:50 AM. Her symptoms have significantly improved since she woke up, but she still feels like something is stuck in her chest. She did that she feels like she needs to burp but cannot and feels worsening symptoms when she swallows. She notes the symptoms are so severe that she started dry heaving. She denies any fevers, shortness of breath, abdominal pain, changes in bowel movements, or other concerns. Related Data Home Medications Medication Instructions Recorded Confirmed buprenorphine 8 mg-naloxone 2 mg 2 tab sublingual 09/13/20 12/03/21 sublingual tablet Previous Rx's Medication Instructions Recorded norelgestromin 150 mcg-e.estradiol See Rx Instructions .Route 01/13/23 35 mcg/24 hr weekly transderm .COMPLEX #3 patches patch (Zafemy) nifedipine 30 mg tablet,extended 30 mg PO DAILY #30 tabs 01/26/23 release Allergies Allergy/AdvReac Type Severity Reaction Status Date / Time No Known Allergies Allergy Verified 12/03/21 15:01 [facility] <Sonja Camacho DO - Last Filed: 01/26/23 07:17> [facility] Disclaimer: The information contained in this section may have been updated after the patient was seen, as this information can be updated by other users. Social History Smoking Status: Current every day smoker tobacco type: cigarettes packs per day: 1 alcohol intake: never substance use type: former substance user current occupational status: student Travel in the last 8 weeks: None household members: signific
[2023-01-26 05:53] LABS: Basophils # 0.1 K/mm3 (0-0.2); Basophils % 0.8 % (0.1-2.0); Eosinophils # 0.9 K/mm3 (0.0-0.4); Eosinophils % 7.7 % (0.1-12.0); Hematocrit 47.2 % (37.0-47.0); Lymphocytes # 4.9 K/mm3 (0.7-4.5); Lymphocytes % 43.1 % (10-50); Mean Corpuscular HGB Conc 31.9 g/dL (31.8-35.4); Mean Corpuscular Hemoglobin 27.5 pg (27.0-31.2); Mean Corpuscular Volume 86.4 fl (81-99); Mean Platelet Volume 7.4 fl (7.4-10.4); Monocytes # 0.4 K/mm3 (0.1-1.0); Monocytes % 3.6 % (1.7-9.3); Neutrophils % 44.7 % (37.0-80.0); Platelet Count 296 K/mm3 (142-424); Red Blood Count 5.46 M/mm3 (4.20-5.40); Red Cell Distribution Width 12.7 % (11.5-17.5); White Blood Count 11.3 K/mm3 (4.8-10.8)
[2023-01-26 05:58] LABS: Alanine Aminotransferase 16 U/L (12-78); Albumin Level 4.7 g/dl (3.5-5.0); Albumin/Globulin Ratio 1.3 (1.1-1.8); Alkaline Phosphatase 38 U/L (38-126); Anion Gap 12.2 mEq/L (5-15); Aspartate Amino Transferase 26 U/L (14-36); Bilirubin,Total 0.2 mg/dl (0.2-1.3); Blood Urea Nitrogen 12 mg/dl (7-17); Carbon Dioxide 31 mmol/L (22.0-30.0); Chloride 103 mmol/L (98-107); Creatinine Clearance Estimated 89 mL/min (50-200); Estimated Glomerular Filt Rate 96 ml/min (>60); GFR (African American) 116 ML/MIN (>60); Globulin 3.7 g/dL (1.3-3.2); Glucose 100 mg/dl (74-100); Lipase 373 U/L (23-300); Potassium 4.2 mmoL/L (3.5-5.1); Sodium 142 mmol/L (136-145); Total Protein,Serum 8.4 g/dl (6.3-8.2)
[2023-01-26 06:02] LABS: D-Dimer 1.45 ug/mL (0.0-0.5)
[2023-01-26 06:20] LABS: Troponin I < 0.01 ng/ml (0.00-0.034)
--- NOTE | 2023-01-26 06:36 | CT_ITS ---
PROCEDURE INFORMATION: Exam: CTA Chest With Contrast Exam date and time: 01/26/2023 7:01 AM Age: 32 years old Clinical indication: Shortness of breath; Patient HX: Chest pain, SOA, elevated d-dimer; Additional info: Elevated dimer, chest pain TECHNIQUE: Imaging protocol: Computed tomographic angiography of the chest with contrast. Exam focused on the arteries. 3D rendering (Not supervised by radiologist): MIP and/or 3D reconstructed images were created by the technologist. Radiation optimization: All CT scans at this facility use at least one of these dose optimization techniques: automated exposure control; mA and/or kV adjustment per patient size (includes targeted exams where dose is matched to clinical indication); or iterative reconstruction. Contrast material: ISOVUE 370; Contrast volume: 75 ml; Contrast route: INTRAVENOUS (IV); REPORTING DATA: Count of CT and Cardiac NM exams in prior 12 months: This patient has received 0 known CTs and 0 known cardiac nuclear medicine studies in the 12 months prior to the current study. COMPARISON: CR XR CHEST 2V 01/26/2023 5:12 AM FINDINGS: Pulmonary arteries: Normal. No pulmonary emboli. Aorta: Unremarkable. No aortic aneurysm. No aortic dissection. Lungs: There is gravity dependent change and associated subsegmental atelectasis in the lower lobes. There is a 6 mm subpleural calcific granuloma in the periphery of the left lower lobe. Pleural spaces: Unremarkable. No pneumothorax. No pleural effusion. Heart: Unremarkable. No cardiomegaly. No pericardial effusion. Lymph nodes: Unremarkable. No enlarged lymph nodes. Bones/joints: Unremarkable. No acute fracture. Soft tissues: There is complicated fluid are confluent low-density soft tissue in the posterior mediastinum encasing the somewhat thick-walled thoracic esophagus. IMPRESSION: No evidence for pulmonary embolism. Complicated fluid or confluence low-density soft tissue encasing the somewhat thick-walled distal thoracic esophagus. Suggest endoscopy or fluoroscopic esophagram as a next examination to exclude esophageal perforation or leak. THIS REPORT CONTAINS FINDINGS THAT MAY BE CRITICAL TO PATIENT CARE. The findings were verbally communicated via telephone conference with Dr. Mendoza at 8:07 AM EDT on 01/26/2023. The findings were acknowledged and understood.
[2023-01-26 06:49] LABS: HCG Qualitative, Serum Negative (Negative)
--- NOTE | 2023-01-26 07:03 | PC.NURSE ---
Pt returned to room from RAD
--- NOTE | 2023-01-26 07:39 | PC.NURSE ---
Rounded on pt. No needs voiced at this time. Call light remains within reach.
--- NOTE | 2023-01-26 08:03 | PC.NURSE ---
JUDITH Mendoza speaking with JOSÉ MIGUEL
--- NOTE | 2023-01-26 08:28 | PC.NURSE ---
Dr. Mendoza at [facility] to update pt/family on results
--- NOTE | 2023-01-26 08:33 | PC.NURSE ---
Called radiology to power-share images and prepare a disc in anticipation for transfer.
--- NOTE | 2023-01-26 08:37 | PC.NURSE ---
placed call to [facility] for transfer
--- NOTE | 2023-01-26 09:34 | PC.NURSE ---
dr. chisholm at [facility] updated pt on POC- accepted to [facility]
--- NOTE | 2023-01-26 09:34 | PC.NURSE ---
Dr Mendoza spoke to Dr Lu at , he is accepting pt.
--- NOTE | 2023-01-26 10:12 | PC.NURSE ---
Called report to Linda @ [facility].
--- NOTE | 2023-01-26 11:08 | PC.NURSE ---
Addendum entered by AMADEO Peters 01/26/23 11:12: pt/family also aware of expected wait times for ambulance transportation Original Note: Rounded on pt. Pt resting at this time. voiced no needs.
== END 2023-01-26 13:41 | disposition other institution (70) ==
PROVIDERS: Emergency Medicine; Emergency Provider Student in an Organized Health Care Education/Training Program; PCP Family Medicine
DX: K22.4 Dyskinesia of esophagus (principal); D72.10 Eosinophilia, unspecified; K21.9 Gastro-esophageal reflux disease without esophagitis; F17.210 Nicotine dependence, cigarettes, uncomplicated
CPT/HCPCS: 71046; 71275; 80053; 83690; 84484; 84703; 85025; 85378; 93005; 96361; 96374; 99285; Q9967

== ENCOUNTER → 2023-02-26 12:55 | Outpatient (CLI) | payer OTHER, SELFPAY ==
--- NOTE | 2023-02-26 13:01 | CT_ITS ---
FINAL REPORT CLINICAL HISTORY: MEDIASTINAL MASS COMPARISON: 01/26/2023 FINDINGS: Axial CT images of the chest were obtained with contrast. Coronal reformatted images were also obtained. This study was performed with techniques to keep radiation doses as low as reasonably achievable, (ALARA). Individualized dose reduction techniques using automated exposure control or adjustment of mA and/or KV according to the patient's size were employed. There is no evidence of mediastinal or hilar mass or adenopathy. No axillary mass or adenopathy is identified. There has been significant improvement in the diffuse esophageal wall thickening with persistent mild wall thickening. There is also marked improvement in the paraesophageal fluid or soft tissue which may have been inflammatory, or less likely neoplastic. No new mass identified. On lung window images, no pulmonary mass or dominant pulmonary nodule is identified. No localized pulmonary inflammatory process is identified. Limited images of the upper abdomen reveal no mass or localized inflammatory process. IMPRESSION: Interval improvement in diffuse esophageal wall thickening with persistent mild wall thickening. Marked improvement in paraesophageal fluid or soft tissue. Reviewed, Interpreted and Dictated by Faustino Good III, MD Transcribed by iLndy Butcher Authenticated and [facility]
== END ==
PROVIDERS: PCP Family Medicine; Visit Provider Family Medicine
DX: J98.59 Other diseases of mediastinum, not elsewhere classified (principal); Z72.0 Tobacco use
CPT/HCPCS: 71260; Q9967

== ENCOUNTER 2023-06-17 10:32 | Outpatient (CLI) | payer OTHER, SELFPAY ==
[2023-06-17 10:38] LABS: Adenovirus,PCR Not Detected (NotDetected); Coronavirus 19, PCR Not Detected (NotDetected); Coronavirus 229E Not Detected (NotDetected); Coronavirus NL63 Not Detected (NotDetected); Coronavirus OC43 Not Detected (NotDetected); Coronovirus HKU1,PCR Not Detected (NotDetected); Human Metapneumovirus Not Detected (NotDetected); Influenza A, PCR Not Detected (NotDetected); Influenza AH1, 2009 Not Detected (NotDetected); Influenza AH1, PCR Not Detected (NotDetected); Influenza AH3,PCR Not Detected (NotDetected); Parainfluenza 1, PCR Not Detected (NotDetected); Parainfluenza 2, PCR Not Detected (NotDetected); Parainfluenza 3, PCR Not Detected (NotDetected); Parainfluenza 4, PCR Not Detected (NotDetected); Respiratory Syncytial Virus Not Detected (NotDetected); Rhinovirus/Enterovirus Not Detected (NotDetected)
[2023-06-17 13:21] LABS: Influenza B, PCR Detected (NotDetected)
== END 2023-06-17 23:59 ==
LOC: LAB 10:33
PROVIDERS: PCP Family Medicine; Visit Provider Nurse Practitioner Family
DX: J06.9 Acute upper respiratory infection, unspecified (principal); J10.1 Influenza due to other identified influenza virus with other respiratory manifestations
CPT/HCPCS: 87632; 87635

== ENCOUNTER 2024-02-25 10:41 | Outpatient (CLI) | payer OTHER, SELFPAY ==
--- NOTE | 2024-02-25 10:44 | US_ITS ---
PROCEDURE INFORMATION: Exam: US Left Breast, Complete, Screening Exam date and time: 02/25/2024 11:04 AM Age: 33 years old Clinical indication: Left breast mass. TECHNIQUE: Imaging protocol: Complete ultrasound of all four quadrants of the left breast and the retroareolar regions, including ultrasound of the axilla when performed. COMPARISON: Left breast ultrasound 03/29/2015. FINDINGS: ULTRASOUND: Breast ultrasound findings: Left breast ultrasound: Benign intramammary lymph node at 3 o'clock 5 cm from the nipple measuring 0.7 x 0.4 x 1.0 x 0.3 cm, respectively. Parallel circumscribed hypoechoic oval mass at 11 o'clock 3 cm from nipple measuring 0.5 x 0.5 x 0.2 cm. No abnormal lymph nodes in the axilla. IMPRESSION: Left breast mass at 11 o'clock is probably benign. Recommend six-month follow-up left breast ultrasound to ensure stability. ASSESSMENT: BI-RADS Category 3: Probably benign.
== END 2024-02-25 23:59 | disposition home or self-care (01) ==
LOC: RAD 10:42
PROVIDERS: PCP Family Medicine; Visit Provider Physician Assistant
DX: N63.21 Unspecified lump in the left breast, upper outer quadrant (principal)
CPT/HCPCS: 76641

== ENCOUNTER 2025-04-15 15:14 | Outpatient (CLI) | payer OTHER, SELFPAY ==
--- NOTE | 2025-04-15 15:16 | US_ITS ---
PROCEDURE INFORMATION: Exam: US Right Breast, Complete US Left Breast, Complete MG Bilateral Diagnostic Breast Tomosynthesis Exam date and time: 04/15/2025 3:19 PM Age: 34 years old Clinical indication: Follow-up from prior for probably benign left breast mass. Region of palpable concern left breast. Family history of breast cancer in grandmother. TECHNIQUE: Imaging protocol: Complete ultrasound of all four quadrants of the right breast and the retroareolar regions, including ultrasound of the axilla when performed. Complete ultrasound of all four quadrants of the left breast and the retroareolar regions, including ultrasound of the axilla when performed. Bilateral Diagnostic tomosynthesis and 2D mammography including computer-aided detection (CAD) when performed. Unilateral or bilateral exam. COMPARISON: 1. MG MM DIG SCREENING MAMM BI W/CAD 04/15/2025 3:19 PM 2. US BREAST LT COMPLETE 02/25/2024 11:04 AM FINDINGS: MAMMOGRAPHY: Breast composition: The breasts are heterogeneously dense, which may obscure small masses. Breast mammogram findings: Bilateral full field CC and MLO tomosynthesis views were obtained. Mass: No suspicious masses. Architectural distortion: None. Calcifications: No suspicious calcifications. Asymmetric density: None. Skin thickening: None. Axillary adenopathy: None. ULTRASOUND: Breast ultrasound findings: Right breast ultrasound: Irregular hypoechoic mass at 10 o'clock 5 cm from the nipple measuring 0.4 x 0.5 x 0.3 cm. No abnormal shadowing, distortion or skin thickening. No abnormal lymph nodes seen in the axilla. Left breast ultrasound: Parallel circumscribed hypoechoic oval mass at 11 o'clock 5 cm from the nipple measuring 0.4 x 0.6 cm, unchanged. Redemonstrated benign intramammary lymph nodes at 3 o'clock. No abnormal lymph nodes in the axilla. IMPRESSION: 1. Subcentimeter right breast mass at 10 o'clock is suspicious. Recommend ultrasound-guided needle biopsy. 2. Stable left breast mass at 11 o'clock, unchanged since 02/25/2024 and probably benign. Recommend six-month follow-up left breast ultrasound to ensure stability. ASSESSMENT: BI-RADS Category 4: Suspicious.
== END 2025-04-15 23:59 | disposition home or self-care (01) ==
LOC: RAD 15:15
PROVIDERS: PCP Family Medicine; Visit Provider Nurse Practitioner Family
DX: Z12.31 Encounter for screening mammogram for malignant neoplasm of breast (principal); N63.11 Unspecified lump in the right breast, upper outer quadrant; N63.22 Unspecified lump in the left breast, upper inner quadrant; R92.333 Mammographic heterogeneous density, bilateral breasts; R92.8 Other abnormal and inconclusive findings on diagnostic imaging of breast
CPT/HCPCS: 76641; 77063; 77067

== ENCOUNTER 2025-05-02 08:34 | Outpatient (CLI) | payer OTHER, SELFPAY ==
--- OUTSIDE RECORDS SUMMARY | 2024-05-14 06:30 | XMS_ITS ---
Author Organization [facility] Address [address] [place] [id number] Care Team Providers Care Expander Name Role Phone Latonia Braun Primary Care Provider Randa Robb Unavailable [phone] Allergies No Known Allergies Results Component Value Reference Range Notes CBC Fingerstick (in house) Reviewed date:05/14/2024 12:28:16 PM Interpretation: Performing Lab: Notes/Report: wbc 10.1 3.5 - 10 lym 39.0 15 - 50 mid 6.2 2 - 15 gran 54.8 35 - 80 rbc 4.73 3.5 - 5.5 hgb 13.7 11.5 - 16.5 hct 40.3 35 - 55 mcv 85.3 75 - 100 mch 29.1 25 - 35 mchc 34.1 31 - 38 plat 135 100 - 400 REASON FOR VISIT Ear Pain, Swollen Lymph Node Medications Medication SIG (Take, Route, Frequency, Duration) Notes Start Date End Date Status Medrol 4 MG as directed orally d aily; Duration: 6 days 05/14/2024 Active Clotrimazole-Betamethasone 1-0.05 % 1 application Externally Twice a day 06/13/2023 Active Cefdinir 300 MG 1 cap(s) Orally Two times a day; Duration: 7 days 05/14/2024 Active Singulair 10 MG 1 tablet Orally Once a day; Duration: 90 days Active Estarylla 0.25-35 MG-MCG 1 tablet Orally Once a day; Duration: 28 day(s) 03/08/2024 Active Pantoprazole Sodium 40 MG 1 tablet Orall y Two times a day; Duration: 30 day(s) 03/17/2023 Active Triamcinolone Acetonide 0.5 % 1 jade Externally 3 times a day 02/15/2022 Active Flonase Allergy Relief 50 MCG/ACT 1 spray in each nostril Nasally Once a day 11/21/2022 Active Buprenorphine HCl-Naloxone HCl 8-2 MG 1.5 tab(s) sublingually once a day Active Vital Signs Blood pressure systolic 120 mm Hg 05/14/19 25 Blood pressure diastolic 72 mm Hg 025 Heart Rate 63 /min 05/14/2024 Height 60 in 05/14/2024 Weight 107 lbs 05/14/2024 BMI 20.89 kg/m2 05/14/2024 Encounters Encounter Location Date Provider Diagnosis [facility] [address] [place] [id number] 05/14/2024 Randa Robb Non-recurrent acute serous otitis media of right ear H65.01 and Acute URI J06.9 Assessments Encounter Date Diagnosis (ICD Code) Assessment Notes Treatment Notes Treatment Clinical Notes Section Notes 05/14/2024 Non-recurrent acute serous otitis media of right ear (ICD-10 - H65.01) 05/14/2024 Acute URI (ICD-10 - J06.9) Plan Of Treatment Medication Medication Name Sig Start Date Stop Date Notes Medrol 4 MG as directed orally daily; Duration: 6 days 02/2025 Cefdinir 300 MG 1 cap(s) Orally Two times a day; Duration: 7 days 05/14/2024 Next Appt Details Follow Up: prn, Reason: Progress Notes * Lesli SHIELDSDOB:1990 (34 yo F)Acc No.[id number]:05/14/2024 Progress Notes Patient: Lesli FLETCHER Provider: KENYETTA Long :1990 A ge:33 Y S ex:Female Date:05/14/2024 Address:[address] [place] [address] [id number] Pcp:Latonia Braun Subjective: * Chief Complaints: * 1 . Ear Pain, Swollen Lymph Node. * HPI: E NT/respiratory: 33 year old female presents with c/o ear pain P t presents today with c/o pain in the right ear as well as pain and swelling in the right side of the neck. Pt sts that Friday evening she started having pain in the right side of the throat. Pts tonsils do appear to be swollen on the right side, however strep tests are negative. Pt sts that she does feel some draining in the right ear. Denies any pain on the left side. * ROS: A LLERGY: no C ough. n o R unny nose. G ASTROENTEROLOGY: no V omiting. n o D iarrhea. U ROLOGY: no D ifficulty urinating. n o B lood in urine. * Medical History: C olitis. * Surgical History: C ervical LEEP 2014, EGD - [facility] 01/26/2023. * Hospitalization/Major Diagno stic Procedure[facility] - Child 08/31/2005, [facility] - Blood Infection 01/2016, [facility] - Child 12/17/2017, [facility] ER to [facility] - Esophogeal Spasms 01/25/2023. * Family History: F ather: alive 51 yrs, diagnosed with Mental Illness. M other: alive 50 yrs, diagnosed with Hypertension. P aternal Grand Father: alive. P aternal Grand Mother: , diagnosed with Diabetes. M aternal Grand Father: , diagnosed with Hypertension. M aternal Grand Mother: , diagnosed with Diabetes, Cancer. S iblings: alive, diagnosed with Cancer.?Children: alive. 3 brother(s) , 5 sister(s) . 2 son(s) . . * Social History: C URRENT TOBACCO USE: Yes . C affeine: yes, frequency: daily. Exercise: yes. Marital Status: Single. Alcohol: yes, social occasions. Recreational drug use: no. Sexually active: yes. Travel ouside [place]: no. * Medications: T aking Buprenorphine HCl-Naloxone HCl 8-2 MG Tablet Sublingual 1.5 tab(s) sublingually once a day , Taking Flonase Allergy Relief 50 MCG/ACT Suspension 1 spray in each nostril Nasally Once a day , Taking Triamcinolone Acetonide 0.5 % Cream 1 jade Externally 3 times a day , Taking Pantoprazole Sodium 40 MG Tablet Delayed Release 1 tablet Orally Two times a day , Taking Estarylla 0.25-35 MG-MCG Tablet 1 tablet Orally Once a day , Taking Singulair 10 MG Tablet 1 tablet Orally Once a day , Taking Clotrimazole-Betamethasone 1-0.05 % Cream 1 application Externally Twice a day , Medication List reviewed and reconciled with the patient * Allergies: N .K.D.A. Objective: * Vitals: W t:107, Temp:97.8, BP:120/72, HR:63, O2 Sat:100% on RA, Nurse:FRAN, Ht: 60, BMI:20.89. * Examination: E NT/Respiratory: General Appearance: N AD. E ars: right TM with effusion but no erythema, left TM with mild effusion, no erythema. N ose : congested. O ral cavity : n o erythema or exudate seen on pharynx. N almita : n o cervical lymphadenopathy. H eart : R RR, normal S1 S2, no murmurs. L ungs: c lear to auscultation bilaterally. Assessment: * Assessment: 1. N on-recurrent acute serous otitis media of right ear - H65.01 (Primary) 2 .?Acute URI - J06.9 Plan: * Treatment: 2. A cute URI Start Cefdinir Capsule, 300 MG, 1 cap(s), Orally, Two times a day, 7 days, 14 Capsule, Refills 0.? L AB: CBC Fingerstick (in house) (Collection Date & Time - 05/14/2024) Value Reference Range w bc 10.1 3.5 - 10 * l ym 39.0 15 - 50 * m id 6.2 2 - 15 * g ran 54.8 35 - 80 * r bc 4.73 3.5 - 5.5 * h gb 13.7 11.5 - 16.5 * h ct 40.3 35 - 55 * m cv 85.3 75 - 100 * m ch 29.1 25 - 35 * m chc 34.1 31 - 38 * p lat 135 100 - 400 * Lore Iglesias 05/14/2024 11:50 :56 AM > Provider reviewed results while patient in office.Randa Robb 05/14/2024 12:28:08 PM > * Procedure Codes: [address] [place], [address] CAPILLARY BLOOD DRAW, 51406 CBC WITH AUTO DIFF * Follow Up: p rn * Images: Billing Information: * Visit Code: 04040 Office Visit, Est Pt., Level 3. * Procedure Codes: [address] [place]. [address] CAPILLARY BLOOD DRAW. 47297 CBC WITH AUTO DIFF. * Electronic signature of KENYETTA Griffin on 05/02/2025 at 08:39 AM EST Sign off status: Pending * Provider: KENYETTA Long Date: 0 05/14/2024 Generated for Xochitli denise/Cyndie/eTransmitting on: 08:39 AM EST History and Physical Notes * HPI (History of Present Illness) Category Sub-Category Detail Notes Category Not es ENT/respiratory ear pain Pt presents toda y with c/o pain in the right ear as well as pain and swelling in the right side of the neck. Pt sts that Friday evening she started having pain in the right side of the throat. Pts tonsils do appear to be swollen on the right side, however strep tests are negative. Pt sts that she does feel some draining in the right ear. Denies any pain on the left side Examination Category Sub-Category Detail Notes Category Not es ENT/Respiratory Oral cavity : no erythema or exudate s een on pharynx Ears: right TM with effusi on but no erythema, left TM with mild effusion, no erythema Neck : no cervical lymphade nopathy Heart : RRR, normal S1 S2, n o murmurs Lungs: clear to auscultatio n bilaterally General Appearance: NAD Nose : congested
--- OUTSIDE RECORDS SUMMARY | 2024-06-03 08:15 | XMS_ITS ---
Author Organization [facility] Address [address] [place] [id number] Care Team Providers Care Construction Plant Operator Name Role Phone Latonia Braun Primary Care Provider [phone] JamesRanda terrell Unavailable [phone] Allergies No Known Allergies Results Component Value Reference Range Notes CBC Venipuncture (in house) Reviewed date:06/04/2024 08:56:17 AM Interpretation: Performing Lab: Notes/Report: wbc 4.6 3.5 - 10 lymph 58.6 15 - 50 mid 6.6 2 - 15 gran 34.8 35 - 80 rbc 5.49 3.5 - 5.5 hgb 15.6 11.5 - 16.5 hct 46.9 35 - 55 mcv 85.4 75 - 100 mch 28.4 25 - 35 mchc 33.3 31 - 38 platlet 144 100 - 400 P-Vitamin B12 Reviewed date:06/04/2024 03:09:31 PM Interpretation: Performing Lab: Notes/Report: Test performed by [facility] [address] [place] [address] , [address], [place] [address] Brian Banuelos MD, Surgical Garment Fitter CLIA: [id number] Vitamin B12 525 506-5520 pg/mL P-Comprehensive Metabolic Pa leora (CMP) Reviewed date:06/04/2024 03:09:31 PM Interpretation: Performing Lab: Notes/Report: Test performed by [facility] [address] [place], [place] [address] , [address], [place] [address] Brian Banuelos MD, Surgical Garment Fitter CLIA: [id number] Sodium 142 135-145 mmol/L Potassium 4.1 3.5-5.3 mmol/L Chloride 106 97-108 mmol/L CO2 26 22-32 mmol/L Glucose 82 65-99 mg/dL BUN 7 6-20 mg/dL Creatinine 0.70 0.50-1.00 mg/dL Calcium 8.9 8.6-10.4 mg/dL eGFR by Creatinine 115 >59 mL/min/1.73m2 Protein 7.1 6.0-8.3 g/dL Albumin 4.6 3.5-5.3 g/dL Alkaline Phosphatase 58 35-121 IU/L ALT (SGPT) 15 <5-47 IU/L AST (SGOT) 17 <5-40 IU/L Bilirubin, Total <0.2 <0.2-1.2 mg/dL A/G Ratio 1.8 1.1-2.5 P-CPK Reviewed date:06/04/2024 03:09:31 PM Interpretation: Performing Lab: Notes/Report: Test performed by [facility] [address] [place], [place] [address] , [address], [place] [address] Brian Banuelos MD, Surgical Garment Fitter CLIA: [id number] Creatine Kinase 46 20-180 U/L P-Arthritis Panel, [facility]X Reviewed date:06/04/2024 03:09:31 PM Interpretation: Performing Lab: Notes/Report: Test performed by [facility] [address] [place] [address] , [address], [place] [address] Brian Banuelos MD, Surgical Garment Fitter CLIA: [id number] Erythrocyte Sedimentation Rate (ESR), Automated 15 <26 mm/hr Rheumatoid Factor <10 <14.1 IU/mL C-Reactive Protein (CRP) 2.91 <0.50 mg/dL Antinuclear Antibodies (KRISTAL) Screen, Reflex KRISTAL 9 Panel Negative Negative This test is performed by Multiplex Bead Immunoassay methodology. Antinuclear Antibodies (KRISTAL) Result Note SEE COMMENT For positive Autoantibodies, please refer to the interpretive chart here: [email or web address] CCP Antibodies <0.5 <0.5-3.0 U/mL P-Ferritin Reviewed date:06/04/2024 03:09:31 PM Interpretation: Performing Lab: Notes/Report: Test performed by [facility] [address] [place] [address] , [place] [address] Brian Banuelos MD, Surgical Garment Fitter CLIA: [id number] Ferritin 76.9 13.0-150.0 ng/mL P-Iron Reviewed date:06/04/2024 03:09:31 PM Interpretation: Performing Lab: Notes/Report: Test performed by [email or web address] [address] , [place] [address] Brian Banuelos MD, Surgical Garment Fitter CLIA: [id number] Iron 30 37-145 ug/dL P-Magnesium Reviewed date:06/04/2024 03:09:31 PM Interpretation: Performing Lab: Notes/Report: Test performed by [email or web address] [address] , [facility] [place] [address] Brian Banuelos MD, Surgical Garment Fitter CLIA: [id number] Magnesium 1.9 1.6-2.4 mg/dL P-TSH reflex to FT4 Reviewed date:06/04/2024 03:09:31 PM Interpretation: Performing Lab: Notes/Report: Test performed by [email or web address] [address] , [place] [address] Brian Banuelos MD, Surgical Garment Fitter CLIA: [id number] TSH reflex to FT4 1.03 0.43-5.25 mU/L P-Vitamin D 25-Hydroxy Reviewed date:06/04/2024 03:09:31 PM Interpretation: Performing Lab: Notes/Report: Test performed by [facility] [address] [place] [address] , [place] [address] Brian Banuelos MD, Surgical Garment Fitter CLIA: [id number] Vitamin D 25-Hydroxy 22.4 30.0-100.0 ng/mL Interpretation of Vitamin D 25 OH: < 20 ng/mL - Deficiency 20 - 29 ng/mL - Insufficiency 30 - 100 ng/mL - Sufficiency > 100 ng/mL - Super-therapeutic- toxicity may occur above this level. Clinical correlation required. REASON FOR VISIT Blood Work, Leg Pains, Wrist Pain Medications Medication SIG (Take, Route, Frequency, Duration) Notes Start Date End Date Status Estarylla 0.25-35 MG-MCG 1 tablet Orally Once a day; Duration: 28 day(s) 03/08/2024 Active Singulair 10 MG 1 tablet Orally Once a day; Duration: 90 days Active Clotrimazole-Betamethasone 1-0.05 % 1 application Externally Twice a day 06/13/2023 Active Buprenorphine HCl-Naloxone HCl 8-2 MG 1.5 tab(s) sublingually once a day Active Flonase Allergy Relief 50 MCG/ACT 1 spray in each nostril Nasally Once a day 11/21/2022 Active Pantoprazole Sodium 40 MG 1 tablet Orall y Two times a day; Duration: 30 day(s) 03/17/2023 Active Triamcinolone Acetonide 0.5 % 1 jade Externally 3 times a day 02/15/2022 Active Problems Problem Type SNOMED Code ICD Code Onset Dates Problem Status W/U Status Risk Notes Problem Paresthesia (55877487) Paresthesia (R20.2) Active confirmed Vital Signs Blood pressure systolic 114 mm Hg 06/03/19 25 Blood pressure diastolic 70 mm Hg 025 Heart Rate 65 /min 06/03/2024 Height 60 in 06/03/2024 Weight 106 lbs 06/03/2024 BMI 20.70 kg/m2 06/03/2024 Encounters Encounter Location Date Provider Diagnosis [facility] [facility] [address] [place] [id number] 06/03/2024 Randa Robb Esophageal spasm K22 .4 ; GERD (gastroesophageal reflux disease) K21.9 ; Polyarthralgia M25.50 ; Paresthesia R20.2 ; Other fatigue R53.83 ; Iron deficiency anemia, unspecified iron deficiency anemia type D50.9 and Myalgia M79.10 Assessments Encounter Date Diagnosis (ICD Code) Assessment Notes Treatment Notes Treatment Clinical Notes Section Notes 06/03/2024 Esophageal spasm (ICD-10 - K22.4) 06/03/2024 GERD (gastroesophageal reflux disease) (ICD-10 - K21.9) 06/03/2024 Polyarthralgia (ICD-10 - M25.50) 06/03/2024 Paresthesia (ICD-10 - R20.2) 06/03/2024 Other fatigue (ICD-10 - R53.83) 06/03/2024 Iron deficiency anemia, unspecified iron deficiency anemia type (ICD-10 - D50.9) 06/03/2024 Myalgia (ICD-10 - M79.10) Plan Of Treatment Next Appt Details Follow Up: via phone to repo rt test results, Reason: Progress Notes * Lesli SHIELDSDOB:1990 (34 yo F)Acc No.[id number]:06/03/2024 Progress Notes Patient: Lesli FLETCHER Provider: KENYETTA Long :1990 A ge:33 Y S ex:Female Date:06/03/2024 Address:[address] [place] [address] [facility] Pcp:Latonia Braun Subjective: * Chief Complaints: * 1 . Blood Work, Leg Pains, Wrist Pain. * HPI: L e33 year old female presents with c/o Leg pain P t presents today with c/o bilateral leg pain. Pt sts that her muscles have been aching like they're going to spasm but sts that she has also been having foot pain and pain that feels as if it is in to the b ones. W rist/Hand: c/o pain. c/o tingling numbness P t also c/o pain and tingling and numbness in the wrists, fingers and elbows. Pt sts that she has been diagnosed w/ carpal tunnel and trigger finger in the right middle finger. Pt sts that she has talked to Dr. Braun previously about pain in the elbow that goes down into the fingers and he said it sounds like ulnar tunnel. * ROS: A LLERGY: no C ough. n o R unny nose. G ASTROENTEROLOGY: no N ausea. n o V omiting. n o D iarrhea.? U ROLOGY: no D ifficulty urinating. n o B lood in urine. * Medical History: C olitis. * Surgical History: [facility]ES 2014, EGD - 01/26/2023. * Hospitalization/Major Diagno stic Procedure[facility] - Child 08/31/2005, [facility] - Blood Infection 01/2016, [facility] - Child 12/17/2017, [facility] ER to [facility] - Esophogeal Spasms 01/25/2023. [...] Allergies: N .K.D.A. Objective: * Vitals: W t:106, Temp:98.1, BP:114/70, HR:65, O2 Sat:100% on RA, Nurse:[facility], Ht: 60, BMI:20.70. * Examination: G eneral Examination: General Appearance: N AD. H EENT: u nremarkable.?Oral cavity: n o lesions, mucosa moist and WNL, no erythema. N almita: s upple, no lymphadenopathy. C hest: n ormal shape and expansion. H eart: R SR. L ungs: c lear to auscultation. A bdomen: bowel sounds present, soft and nontender, no organomegaly or masses, no guarding or rigidity. N eurologic Exam: I ntact, gait normal. S kin: n ormal, no rash. P eripheral pulses: n ormal (2+) bilaterally. E xtremities: n o leg edema, ttp along the dorsum of the bilateral feet, positive tinel and phalen signs in both wrists, no joint edema or erythema. Assessment: * Assessment: 1. E sophageal spasm - K22.4 (Primary) 2 . G ERD (gastroesophageal reflux disease) - K21.9 3 . P olyarthralgia - M25.50 4 . P aresthesia - R20.2 5 . O ther fatigue - R53.83 6 . I jairo deficiency anemia, unspecified iron deficiency anemia type - D50.9 7 . M yalgia - M79.10? Plan: * Treatment: Value Reference Range M agnesium 1.9 1.6-2.4 - mg/dL * Randa Robb 06/04/2024 3: 09:16 PM > see TE, discussed with patient 2.?Polyarthralgia?LAB: P-Arthritis Panel, [facility] (Collection Date & Time - 06/03/2024 12:17 PM)* Value Reference Range A ntinuclear Antibodies (KRISTAL) Result Note SEE COMMENT - * A ntinuclear Antibodies (KRISTAL) Screen, Reflex KRISTAL 9 Panel Negative Negative - * C CP Antibodies <0.5 <0.5-3.0 - U/mL * C -Reactive Protein (CRP) 2.91 H <0.50 - mg/dL * E rythrocyte Sedimentation Rate (ESR), Automated 15 <26 - mm/hr * R heumatoid Factor <10 <14.1 - IU/mL * Randa Robb 06/04/2024 3: 09:16 PM > see TE, discussed with patient 3.?Paresthesia?LAB: P-Vitamin B12 (Collection Date & Time - 06/03/2024 12:17 PM)* Value Reference Range V itamin B12 024 093-7336 - pg/mL * Randa Robb 06/04/2024 3: 09:16 PM > see TE, discussed with patient 4.?Other fatigue?LAB: P-Comprehensive Metabolic Panel (CMP) (Collection Date & Time - 06/03/2024 12:17 PM)* Value Reference Range A /G Ratio 1.8 1.1-2.5 - * A lbumin 4.6 3.5-5.3 - g/dL * A lkaline Phosphatase 58 35-121 - IU/L * A LT (SGPT) 15 <5-47 - IU/L * A ST (SGOT) 17 <5-40 - IU/L * B ilirubin, Total <0.2 <0.2-1.2 - mg/dL * B UN 7 6-20 - mg/dL * C alcium 8.9 8.6-10.4 - mg/dL * C hloride 106 97-108 - mmol/L * C O2 26 22-32 - mmol/L * C reatinine 0.70 0.50-1.00 - mg/dL * G lucose 82 65-99 - mg/dL * P otassium 4.1 3.5-5.3 - mmol/L * S odium 142 135-145 - mmol/L * P rotein 7.1 6.0-8.3 - g/dL * e GFR by Creatinine 115 >59 - mL/min/1.73m2 * Randa Robb 06/04/2024 3: 09:16 PM > see TE, discussed with patient ?LAB: P-TSH reflex to FT4 (Collection Date & Time - 06/03/2024 12:17 PM)* Value Reference Range T SH reflex to FT4 1.03 0.43-5.25 - mU/L * Randa Robb 06/04/2024 3: 09:16 PM > see TE, discussed with patient ?LAB: P-Vitamin D 25-Hydroxy (Collection Date & Time - 06/03/2024 12:17 PM) * Value Reference Range V itamin D 25-Hydroxy 22.4 L 30.0-100.0 - ng/mL * Randa Robb 06/04/2024 3: 09:16 PM > see TE, discussed with patient 5.?Iron deficiency anemia, unspecified iron deficiency anemia type?LAB: P-Ferritin (Collection Date & Time - 06/03/2024 12:17 PM)* Value Reference Range F erritin 76.9 13.0-150.0 - ng/mL * JamesnidhiRanda Mikaela 06/04/2024 3: 09:16 PM > see TE, discussed with patient ?LAB: P-Iron (Collection Date & Time - 06/03/2024 12:17 PM)* Value Reference Range I jairo 30 L 37-145 - ug/dL * CezarRanda Mikaela 06/04/2024 3: 09:16 PM > see TE, discussed with patient ?LAB: CBC Venipuncture (in house) (Collection Date & Time - 06/03/2024)* Value Reference Range w bc 4.6 3.5 - 10 * l ymph 58.6 15 - 50 * m id 6.6 2 - 15 * g ran 34.8 35 - 80 * r bc 5.49 3.5 - 5.5 * h gb 15.6 11.5 - 16.5 * h ct 46.9 35 - 55 * m cv 85.4 75 - 100 * m ch 28.4 25 - 35 * m chc 33.3 31 - 38 * p latlet 144 100 - 400 * Lesli Shields 06/03/2024 1:21 :04 PM > 6.?Myalgia?LAB: P-CPK (Collection Date & Time - 06/03/2024 12:17 PM)* Value Reference Range C reatine Kinase 46 20-180 - U/L * JamesnidhiRanda Al 06/04/2024 3: 09:16 PM > see TE, discussed with patient * Procedure Codes: 9 4760 [place], [address] CBC WITH AUTO DIFF, 50199 VENIPUNCT, ROUTINE* * Follow Up: v ia phone to report test results * Images: Billing Information: * Visit Code: 76666 Office Visit, Est Pt., Level 4. * Procedure Codes: [address] [place]. [address] CBC WITH AUTO DIFF. 78974 VENIPUNCT, ROUTINE*. * Electronic signature of KENYETTA Griffin on 05/02/2025 at 08:39 AM EST Sign off status: Pending * Provider: KENYETTA Long Date: 0 06/03/2024 Generated for Adeline walker/Cyndie/eTransmitting on: 1 08:39 AM EST History and Physical Notes * HPI (History of Present Illness) Category Sub-Category Detail Notes Category Not es Wrist/Hand pain tingling numbness Pt also c/o pain and tingling and numbness in the wrists, fingers and elbows. Pt sts that she has been diagnosed w/ carpal tunnel and trigger finger in the right middle finger. Pt sts that she has talked to Dr. Braun previously about pain in the elbow that goes down into the fingers and he said it sounds like ulnar tunnel Leg Leg pain Pt presents toda y with c/o bilateral leg pain. Pt sts that her muscles have been aching like they're going to spasm but sts that she has also been having foot pain and pain that feels as if it is in to the bones Examination Category Sub-Category Detail Notes Category Not es General Examination HEENT: unremarkable Heart: RSR Lungs: clear to auscultatio n Abdomen: bowel sounds present , soft and nontender, no organomegaly or masses, no guarding or rigidity Extremities: no leg edema, ttp al ita the dorsum of the bilateral feet, positive tinel and phalen signs in both wrists, no joint edema or erythema General Appearance: NAD Skin: normal, no rash Neurologic Exam: Intact, gait normal Neck: supple, no lymphaden opathy Oral cavity: no lesions, mucosa m oist and WNL, no erythema Peripheral pulses: normal (2+) bilatera lly Chest: normal shape and exp ansion
--- OUTSIDE RECORDS SUMMARY | 2024-06-14 04:35 | XMS_ITS ---
Author Organization [facility] Address [address] [facility] [address] [place] [id number] Care Team Providers Care Estate Attorney Name Role Phone Latonia Braun Primary Care Provider JamesRanda terrell Unavailable [phone] Results Component Value Reference Range Notes Urinalysis - Inhouse Reviewed date:06/15/2024 10:21:38 AM Interpretation: Performing Lab: Notes/Report: Color/Clarity yamel Leuk neg Nitrite neg Urobili 16 Protein 2+ pH 6.0 Blood 1+ Sp. Gr. 1.025 Ketone trace Bili 1+ Gluc neg TEN-UTI panel Reviewed date:06/16/2024 02:46:46 PM Interpretation:Negative Performing Lab: Notes/Report: Negative REASON FOR VISIT UA Medications Medication SIG (Take, Route, Frequency, Duration) Notes Start Date End Date Status Pantoprazole Sodium 40 mg TAKE ONE TABLE T BY MOUTH TWICE DAILY; Duration: 30 Active Ferrous Sulfate ER 50 MG 1 tablet Orally Three times a Week; Duration: 30 day(s) 06/04/2024 Active Vitamin D3 50 MCG (1999 UT) 1 tablet Ora lly Once a day; Duration: 30 day(s) 06/04/2024 Active Singulair 10 MG 1 tablet Orally Once a day; Duration: 90 days Active Clotrimazole-Betamethasone 1-0.05 % 1 application Externally Twice a day 06/13/2023 Active Triamcinolone Acetonide 0.5 % 1 jade Externally 3 times a day 02/15/2022 Active Estarylla 0.25-35 MG-MCG 1 tablet Orally Once a day; Duration: 28 day(s) 03/08/2024 Active Flonase Allergy Relief 50 MCG/ACT 1 spray in each nostril Nasally Once a day 11/21/2022 Active Macrobid 100 MG 1 capsule with food Orally every 12 hrs; Duration: 7 days 06/14/2024 Active Buprenorphine HCl-Naloxone HCl 8-2 MG 1.5 tab(s) sublingually once a day Active Encounters Encounter Location Date Provider Diagnosis [facility] [address] [place] [id number] 06/14/2024 Randa Robb Dysuria R30.0 and Hematuria, unspecified type R31.9 Assessments Encounter Date Diagnosis (ICD Code) Assessment Notes Treatment Notes Treatment Clinical Notes Section Notes 06/14/2024 Dysuria (ICD-10 - R30.0) 06/14/2024 Hematuria, unspecified type (ICD-10 - R31.9) Plan Of Treatment Medication Medication Name Sig Start Date Stop Date Notes Macrobid 100 MG 1 capsule with food Orally every 12 hrs; Duration: 7 days 06/14/2024 Progress Notes * Lesli SHIELDSDOB:1990 (34 yo F)Acc No.[id number]:06/14/2024 Patient: Lesli FLETCHER Provider: KENYETTA Long :1990 A ge:33 Y S ex:Female Date:06/14/2024 Address:[address] [place] [address] [facility] Pcp:Latonia Braun Subjective: * Chief Complaints: * 1 . UA. * Medical History: * Medications: T aking Buprenorphine HCl-Naloxone HCl 8-2 MG Tablet Sublingual 1.5 tab(s) sublingually once a day , Taking Flonase Allergy Relief 50 MCG/ACT Suspension 1 spray in each nostril Nasally Once a day , Taking Triamcinolone Acetonide 0.5 % Cream 1 jade Externally 3 times a day , Taking Estarylla 0.25-35 MG-MCG Tablet 1 tablet Orally Once a day , Taking Singulair 10 MG Tablet 1 tablet Orally Once a day , Taking Clotrimazole-Betamethasone 1-0.05 % Cream 1 application Externally Twice a day , Taking Ferrous Sulfate ER 50 MG Tablet Extended Release 1 tablet Orally Three times a Week , Taking Vitamin D3 50 MCG (1999 UT) Tablet 1 tablet Orally Once a day , Taking Pantoprazole Sodium 40 mg Tablet Delayed Release TAKE ONE TABLET BY MOUTH TWICE DAILY , Medication List reviewed and reconciled with the patient Objective: * Vitals: Assessment: * Assessment: 1. D ysuria - R30.0 (Primary) 2 . H ematuria, unspecified type - R31.9 Plan: * Treatment: Value Reference Range C olor/Clarity yamel * L euk neg * N itrite neg * U robili 16 * P rotein 2+ * p H 6.0 * B lood 1+ * S p. Gr. 1.025 * K etone trace * B meghna 1+ * G jennifer neg * Lesli Shields 06/14/2024 8:40 :11 AM > ordered a Randa Light 06/15/2024 10:21:31 AM > noted ?LAB: TEN-UTI panel (Collection Date & Time - 06/14/2024)?Negative* Lesli Shields 06/16/2024 2:46 :41 PM > pt informed 2.?Hematuria, unspecified type?LAB: TEN-UTI panel (Collection Date & Time - 06/14/2024)?Negative* Lesli Shields 06/16/2024 2:46 :41 PM > pt informed * Procedure Codes: 8 1002 Urinalysis, no micro * Images: Billing Information: * Visit Code: * Procedure Codes: 72282 Urinalysis, no micro. * Electronic signature of KENYETTA Griffin on 05/02/2025 at 08:37 AM EST Sign off status: Pending * Provider: KENYETTA Long Date: 0 06/14/2024 Generated for Adeline walker/Cyndie/eTransmitting on: 1 08:37 AM EST
--- OUTSIDE RECORDS SUMMARY | 2024-07-12 07:00 | XMS_ITS ---
Author Organization [facility] Address [address] [place] [id number] Care Team Providers Care Management Expert Name Role Phone Latonia Braun Primary Care Provider Howard, Edgard Unavailable [phone] Allergies No Known Allergies Results Component Value Reference Range Notes CBC Fingerstick (in house) Reviewed date:07/12/2024 12:21:56 PM Interpretation: Performing Lab: Notes/Report: wbc 9.8 3.5 - 10 lym 27.5 15 - 50 mid 5.9 2 - 15 gran 66.6 35 - 80 rbc 4.62 3.5 - 5.5 hgb 13.4 11.5 - 16.5 hct 39.3 35 - 55 mcv 84.9 75 - 100 mch 29.0 25 - 35 mchc 34.1 31 - 38 plat 106 100 - 400 REASON FOR VISIT Congestion Medications Medication SIG (Take, Route, Frequency, Duration) Notes Start Date End Date Status Pantoprazole Sodium 40 mg TAKE ONE TABLE T BY MOUTH TWICE DAILY; Duration: 30 Active Zithromax Z-Taras 250 MG as directed Orall y once daily; Duration: 5 day(s) 07/12/2024 Active Singulair 10 MG 1 tablet Orally Once a day; Duration: 90 days Active Estarylla 0.25-35 MG-MCG 1 tablet Orally Once a day; Duration: 28 day(s) 03/08/2024 Active Triamcinolone Acetonide 0.5 % 1 jade Externally 3 times a day 02/15/2022 Active Vitamin D3 50 MCG (1999 UT) 1 tablet Ora lly Once a day; Duration: 30 day(s) 06/04/2024 Active Flonase Allergy Relief 50 MCG/ACT 1 spray in each nostril Nasally Once a day 11/21/2022 Active Buprenorphine HCl-Naloxone HCl 8-2 MG 1.5 tab(s) sublingually once a day Active Vital Signs Blood pressure systolic 110 mm Hg 07/13/19 25 Blood pressure diastolic 80 mm Hg 025 Heart Rate 81 /min 07/12/2024 Height 60 in 07/12/2024 Weight 102.2 lbs 07/12/2024 BMI 19.96 kg/m2 07/12/2024 Encounters Encounter Location Date Provider Diagnosis [facility] [address] [place] [id number] 07/12/2024 Edgard Ernst Acute URI J06.9 Assessments Encounter Date Diagnosis (ICD Code) Assessment Notes Treatment Notes Treatment Clinical Notes Section Notes 07/12/2024 Acute URI (ICD-10 - J06.9) Plan Of Treatment Medication Medication Name Sig Start Date Stop Date Notes Zithromax Z-Taras 250 MG as directed Orall y once daily; Duration: 5 day(s) 07/12/2024 Next Appt Details Follow Up: prn, Reason: Progress Notes * Lesli SHIELDSDOB:1990 (34 yo F)Acc No.[id number]:07/12/2024 Progress Notes Patient: Lesli FLETCHER Provider: Dionna Ernst M.D. :1990 A ge:33 Y S ex:Female Date:07/12/2024 Address:[address] [place] [address] [facility] Pcp:Latonia Braun Subjective: * Chief Complaints: * 1 . Congestion. * HPI: E NT/respiratory: 33 year old female presents with c/o cough. c/o nasal congestion P t presents today with c/o nasal congestion. Pt sts that she started to feel bad on Friday afternoon with a dry sore throat. As the weekend progressed she developed nasal congestion, dry cough. Pt sts that she coughed quite a bit last night with just a itchy throat. Pt c/o soreness in the chest. c/o post nasal drainage. Denies : ear pain. D enies : body aches. D enies : ear stopped up. * ROS: D ERMATOLOGY: no R keila. n o H dex. G ASTROENTEROLOGY: no N ausea. n o V omiting. n o D iarrhea.? U ROLOGY: no D ifficulty urinating. n o B lood in urine. * Medical History: C olitis. * Surgical History: C ervical LEEP 2014, EGD - [facility] 01/26/2023. * Hospitalization/Major Diagno stic Procedure: [facility] - Child 08/31/2005, [facility] - Blood Infection 01/2016, [facility] - Child 12/17/2017, [facility] ER to [facility] - Esophogeal Spasms 01/25/2023. [...] tablet Orally Once a day , Taking Vitamin D3 50 MCG (2000 UT) Tablet 1 tablet Orally Once a day , Taking Pantoprazole Sodium 40 mg Tablet Delayed Release TAKE ONE TABLET BY MOUTH TWICE DAILY , Discontinued Clotrimazole-Betamethasone 1-0.05 % Cream 1 application Externally Twice a day , Discontinued Macrobid 100 MG Capsule 1 capsule with food Orally every 12 hrs , Discontinued Tamiflu 75 MG Capsule 1 capsule Orally once daily , Notes to Pharmacist: Prophylaxis, Discontinued Ferrous Fumarate 325 (106 Fe) MG Tablet 1 tablet Orally Three times a Week , Medication List reviewed and reconciled with the patient * Allergies: N .K.D.A. Objective: * Vitals: W t:102.2, Temp:98.5, BP:110/80, HR:81, O2 Sat:97% on RA, Nurse:jason, Ht: 60, BMI:19.96. * Examination: E NT/Respiratory: General Appearance: N AD. O ral cavity : erythema without exudate on pharynx. Assessment: * Assessment: 1. Anya cross URI - J06.9 (Primary) Plan: * Treatment: Value Reference Range w bc 9.8 3.5 - 10 * l ym 27.5 15 - 50 * m id 5.9 2 - 15 * g ran 66.6 35 - 80 * r bc 4.62 3.5 - 5.5 * h gb 13.4 11.5 - 16.5 * h ct 39.3 35 - 55 * m cv 84.9 75 - 100 * m ch 29.0 25 - 35 * m chc 34.1 31 - 38 * p lat 106 100 - 400 * Lore Iglesias 07/12/2024 12:09 :44 PM > Provider reviewed results while patient in office. * Procedure Codes: 3 6416 CAPILLARY BLOOD DRAW, 85746 CBC WITH AUTO DIFF, 3074F SYST BP LT 130 MM HG, 3079F DIAST BP 80-89 MM HG * Follow Up: p rn * Images: Billing Information: * Visit Code: 00692 Office Visit, Est Pt., Level 3. * Procedure Codes: 85904 CAPILLARY BLOOD DRAW. 25442 CBC WITH AUTO DIFF. 3074F SYST BP LT 130 MM HG. 3079F DIAST BP 80-89 MM HG. * Electronic signature of Qing Ernst MD on 05/02/2025 at 08:39 AM EST Sign off status: Pending * Provider: Dionna Ernst M.D. Date: 0 07/12/2024 Generated for Adeline walker/Cyndie/Osmany on: 1 08:39 AM EST History and Physical Notes * HPI (History of Present Illness) Category Sub-Category Detail Notes Category Not es ENT/respiratory ear pain cough post nasal drainage nasal congestion Pt presents today wi th c/o nasal congestion. Pt sts that she started to feel bad on Friday afternoon with a dry sore throat. As the weekend progressed she developed nasal congestion, dry cough. Pt sts that she coughed quite a bit last night with just a itchy throat. Pt c/o soreness in the chest body aches ear stopped up Examination Category Sub-Category Detail Notes Category Not es ENT/Respiratory Oral cavity : erythema without exudate on pharynx General Appearance: NAD
--- OUTSIDE RECORDS SUMMARY | 2024-08-02 09:10 | XMS_ITS ---
Author Organization [facility] [address] [facility] [address] [facility] [address] [place] [id number] Care Team Providers Care Kennel Aide Name Role Phone Latonia Braun Primary Care Provider Randa Robb [phone] REASON FOR VISIT Repeat Labs Encounters Encounter Location Date Provider Diagnosis [facility] [address] [facility] [address] [place] [id number] 08/02/2024 Randa Robb Iron deficiency anem ia, unspecified iron deficiency anemia type D50.9 ; Vitamin D deficiency E55.9 and Elevated C-reactive protein (CRP) R79.82 Assessments Encounter Date Diagnosis (ICD Code) Assessment Notes Treatment Notes Treatment Clinical Notes Section Notes 08/02/2024 Iron deficiency anemia, unspecified iron deficiency anemia type (ICD-10 - D50.9) 08/02/2024 Vitamin D deficiency (ICD-10 - E55.9) 08/02/2024 Elevated C-reactive protein (CRP) (ICD-10 - R79.82) Plan Of Treatment No Information Progress Notes * Lesli SHIELDSDOB:1990 (34 yo F)Acc No.[id number]:08/02/2024 Patient: Lesli FLETCHER Provider: KENYETTA Long :1990 A ge:33 Y S ex:Female Date:08/02/2024 Address:[id number] Pcp:Latonia Braun Subjective: * Chief Complaints: * 1 . Repeat Labs. * Medical History: Objective: * Vitals: Assessment: * Assessment: 1. I jairo deficiency anemia, unspecified iron deficiency anemia type - D50.9 2 .?Vitamin D deficiency - E55.9 3 . E levated C-reactive protein (CRP) - R79.82 Plan: * Treatment: * Images: Billing Information: * Visit Code: * Procedure Codes: * Electronic signature of KENYETTA Griffin on 05/02/2025 at 08:39 AM EST Sign off status: Pending * Provider: KENYETTA Long Date: 0 08/02/2024 Generated for Adeline walker/Cyndie/Osmany on: 1 08:39 AM EST
--- OUTSIDE RECORDS SUMMARY | 2024-10-28 08:15 | XMS_ITS ---
Author Organization [facility] Address [address] [place] [id number] Care Team Providers Care Manager Product Design Name Role Phone Latonia Braun Primary Care Provider Allergies No Known Allergies REASON FOR VISIT Discuss Meds for Flight Medications Medication SIG (Take, Route, Frequency, Duration) Notes Start Date End Date Status Scopolamine 1 MG/3DAYS 1 patch to skin b ehind the ear as needed Transdermal every 72 hours 10/28/2024 Active hydrOXYzine HCl 25 MG 1 or 2 Orally 1 ho ur before flight 10/28/2024 Active Buprenorphine HCl-Naloxone HCl 8-2 MG 1.5 tab(s) sublingually once a day Active Flonase Allergy Relief 50 MCG/ACT 1 spray in each nostril Nasally Once a day 11/21/2022 Active Triamcinolone Acetonide 0.5 % 1 jade Externally 3 times a day 02/15/2022 Active Vitamin D3 50 MCG (1999 UT) 1 tablet Ora lly Once a day; Duration: 90 days Active Pantoprazole Sodium 40 mg TAKE ONE TABLE T BY MOUTH TWICE DAILY Orally Two times a day; Duration: 90 days Active Estarylla 0.25-35 MG-MCG 1 tablet Orally Once a day; Duration: 28 day(s) 03/08/2024 Active Singulair 10 MG 1 tablet Orally Once a day; Duration: 90 days Active Problems Problem Type SNOMED Code ICD Code Onset Dates Problem Status W/U Status Risk Notes Problem Fear of flying (424644853) 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 confirmed Vital Signs Blood pressure systolic 122 mm Hg 10/29/19 25 Blood pressure diastolic 62 mm Hg 025 Heart Rate 90 /min 10/28/2024 Height 60 in 10/28/2024 Weight 105.6 lbs 10/28/2024 BMI 20.62 kg/m2 10/28/2024 Encounters Encounter Location Date Provider Diagnosis [facility] [address] [place] [id number] 10/28/2024 Latonia Braun Fear of flying F40.243 and Motion sickness, initial encounter T75.3XXA Assessments Encounter Date Diagnosis (ICD Code) Assessment Notes Treatment Notes Treatment Clinical Notes Section Notes 10/28/2024 Fear of flying (ICD-10 - F40.243) 10/28/2024 Motion sickness, initial encounter (ICD-10 - T75.3XXA) Plan Of Treatment Medication Medication Name Sig Start Date Stop Date Notes Scopolamine 1 MG/3DAYS 1 patch to skin b ehind the ear as needed Transdermal every 72 hours 10/28/2024 hydrOXYzine HCl 25 MG 1 or 2 Orally 1 hour before flight 0 10/28/2024 Next Appt Details Follow Up: prn, Reason: Progress Notes * Lesli SHIELDSDOB:1990 (34 yo F)Acc No.[id number]:10/28/2024 Progress Notes Patient: Lesli FLETCHER Provider: Latonia Braun M.D. :1990 A ge:33 Y S ex:Female Date:10/28/2024 Address:[address] [place] [address] [id number] Subjective: * Chief Complaints: * 1 . Discuss Meds for Flight. * HPI: P sychology: Anxiety P t presents today to discuss getting medications for an upcoming flight. Pt has never flown before and is fearful so would like a low dose or mild anxiety medication to have just in case her anxiety gets too bad. G astroenterology: c/o Nausea P t would also like to discuss getting something to help with motion sickness. She sts that she typically gets car sick and is afraid the trip there and some planned activities will cause this. * ROS: D ERMATOLOGY: no R keila. n o H dex. G ASTROENTEROLOGY: no N ausea. n o V omiting. n o D iarrhea.? U ROLOGY: no D ifficulty urinating. n o B lood in urine. * Medical History: C olitis. * Surgical History: C luis m MILES 2014, EGD - [facility] 01/26/2023. * Hospitalization/Major Diagno stic Procedure: [facility] - Child 08/31/2005, [facility] - Blood Infection 01/2016, [facility] - Child 12/17/2017, [facility] ER to [facility] - Esophogeal Spasms 01/25/2023. * Family History: F ather: alive 51 yrs, diagnosed with Mental Illness. M other: alive 50 yrs, diagnosed with Hypertension. P aternal Grand Father: alive. P aternal Grand Mother: , diagnosed with Diabetes. M aternal Grand Father: , diagnosed with Hypertension. M aternal Grand Mother: , diagnosed with Cancer, Diabetes. S iblings: alive, diagnosed with Cancer.?Children: alive. [...] TAKE ONE TABLET BY MOUTH TWICE DAILY Orally Two times a day , Discontinued Zithromax Z-Taras 250 MG Tablet as directed Orally once daily , Medication List reviewed and reconciled with the patient * Allergies: N .K.D.A. Objective: * Vitals: W t: 105.6, Temp: 98.3, BP: 122/62, HR: 90, Nurse: BETTY, Ht: 60, BMI:20.62. Assessment: * Assessment: 1. 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 M otion sickness, initial encounter - T75.3XXA Plan: * Treatment: 2. M otion sickness, initial encounter Start Scopolamine Patch 72 Hour, 1 MG/3DAYS, 1 patch to skin behind the ear as needed, Transdermal, every 72 hours, 3. * Follow Up: p rn * Images: Billing Information: * Visit Code: 97607 Office Visit, Est Pt., Level 3. * Procedure Codes: * Electronic signature of Latonia Braun MD on 05/02/2025 at 08:38 AM EST Sign off status: Pending * Provider: Latonia Braun M.D. Date: 0 10/28/2024 Generated for Adeline walker/Cyndie/eTransmitting on: 1 08:38 AM EST History and Physical Notes * HPI (History of Present Illness) Category Sub-Category Detail Notes Category Not es Psychology Anxiety Pt presents toda y to discuss getting medications for an upcoming flight. Pt has never flown before and is fearful so would like a low dose or mild anxiety medication to have just in case her anxiety gets too bad Gastroenterology Nausea Pt would also l jaswinder to discuss getting something to help with motion sickness. She sts that she typically gets car sick and is afraid the trip there and some planned activities will cause this
--- OUTSIDE RECORDS SUMMARY | 2024-12-23 08:00 | XMS_ITS ---
Author Organization [facility] Address [address] [place] [id number] Care Team Providers Care Rural Health Consultant Name Role Phone Latonia Braun Primary Care Provider JamesRnada terrell Unavailable [phone] Results Component Value Reference Range Notes CBC Fingerstick (in house) Reviewed date:12/23/2024 01:17:48 PM Interpretation: Performing Lab: Notes/Report: wbc 8.4 3.5 - 10 lym 31.3 15 - 50 mid 5.1 2 - 15 gran 63.6 35 - 80 rbc 4.73 3.5 - 5.5 hgb 13.7 11.5 - 16.5 hct 40.5 35 - 55 mcv 85.5 75 - 100 mch 29.1 25 - 35 mchc 34.0 31 - 38 plat 215 100 - 400 P-Comprehensive Metabolic Pa leora (CMP) Reviewed date:12/24/2024 09:09:27 AM Interpretation:glu 116 Performing Lab: Notes/Report: Test performed by [employer] [address] [place] [address] , [address], [place] [address] Brian Banuelos MD, Doctor Of Naprapathic Medicine CLIA: [id number] Sodium 138 135-145 mmol/L Potassium 4.2 3.5-5.3 mmol/L Chloride 101 97-108 mmol/L CO2 26 20-32 mmol/L Glucose 116 65-99 mg/dL BUN 9 6-20 mg/dL Creatinine 0.75 0.50-1.00 mg/dL Calcium 9.8 8.6-10.4 mg/dL eGFR by Creatinine 106 >59 mL/min/1.73m2 Protein 7.4 6.0-8.3 g/dL Albumin 4.9 3.5-5.3 g/dL Alkaline Phosphatase 46 35-121 IU/L ALT (SGPT) 13 <5-47 IU/L AST (SGOT) 17 <5-40 IU/L Bilirubin, Total 0.5 <0.2-1.2 mg/dL A/G Ratio 2.0 1.1-2.5 R-L-Eafkeiim Protein (CRP) Reviewed date:12/24/2024 09:09:27 AM Interpretation:Normal Performing Lab: Notes/Report: Test performed by [employer] [address] [place] [address] , [facility] [address], [place] [address] Brian Banuelos MD, Doctor Of Naprapathic Medicine CLIA: [id number] C-Reactive Protein (CRP) 0.19 <0.50 mg/dL P-Iron Reviewed date:12/24/2024 09:09:27 AM Interpretation:167 Performing Lab: Notes/Report: Test performed by [employer] [address] , [place] [address] Brian Banuelos MD, Doctor Of Naprapathic Medicine CLIA: [id number] Iron 167 37-145 ug/dL P-Vitamin D 25-Hydroxy Reviewed date:12/24/2024 09:09:27 AM Interpretation:Normal Performing Lab: Notes/Report: Test performed by [employer] [address] , [place] [address] Brian Banuelos MD, Doctor Of Naprapathic Medicine CLIA: [id number] Vitamin D 25-Hydroxy 66.1 30.0-100.0 ng/mL Interpretation of Vitamin D 25 OH: < 20 ng/mL - Deficiency 20 - 29 ng/mL - Insufficiency 30 - 100 ng/mL - Sufficiency > 100 ng/mL - Super-therapeutic- toxicity may occur above this level. Clinical correlation required. REASON FOR VISIT Labs Medications Medication SIG (Take, Route, Frequency, Duration) Notes Start Date End Date Status Flonase Allergy Relief 50 MCG/ACT 1 spray in each nostril Nasally Once a day 11/21/2022 Active Triamcinolone Acetonide 0.5 % 1 jade Externally 3 times a day 02/15/2022 Active Buprenorphine HCl-Naloxone HCl 8-2 MG 1.5 tab(s) sublingually once a day Active Estarylla 0.25-35 MG-MCG 1 tablet Orally Once a day; Duration: 28 day(s) 03/08/2024 Active Vitamin D3 50 MCG (1999) 1 tablet Ora lly Once a day; Duration: 90 days Active Pantoprazole Sodium 40 mg TAKE ONE TABLE T BY MOUTH TWICE DAILY Orally Two times a day; Duration: 90 days Active Singulair 10 MG 1 tablet Orally Once a day; Duration: 90 days Active Encounters Encounter Location Date Provider Diagnosis [facility] [facility] [address] [place] [id number] 12/23/2024 Randa Robb Elevated C-reactive protein (CRP) R79.82 ; Vitamin D deficiency E55.9 and Iron deficiency anemia, unspecified iron deficiency anemia type D50.9 Assessments Encounter Date Diagnosis (ICD Code) Assessment Notes Treatment Notes Treatment Clinical Notes Section Notes 12/23/2024 Elevated C-reactive protein (CRP) (ICD-10 - R79.82) 12/23/2024 Vitamin D deficiency (ICD-10 - E55.9) 12/23/2024 Iron deficiency anemia, unspecified iron deficiency anemia type (ICD-10 - D50.9) Plan Of Treatment No Information Progress Notes * Lesli SHIELDSDOB:1990 (34 yo F)Acc No.[id number]:12/23/2024 Patient: Lesli FLETCHER Provider: KENYETTA Long :1990 A ge:34 Y S ex:Female Date:12/23/2024 Address:[address] [place], [place] [phone] Pcp:Latonia Braun Subjective: * Chief Complaints: * 1 . Labs. * Medical History: * Medications: T aking [...] Orally Two times a day , Discontinued hydrOXYzine HCl 25 MG Tablet 1 or 2 Orally 1 hour before flight , Discontinued Scopolamine 1 MG/3DAYS Patch 72 Hour 1 patch to skin behind the ear as needed Transdermal every 72 hours Objective: * Vitals: Assessment: * Assessment: 1. E levated C-reactive protein (CRP) - R79.82 2 . V itamin D deficiency - E55.9 3 . I jairo deficiency anemia, unspecified iron deficiency anemia type - D50.9 Plan: * Treatment: Value Reference Range C -Reactive Protein (CRP) 0.19 <0.50 - mg/dL 2.?Vitamin D deficiency?LAB: P-Vitamin D 25-Hydroxy (Collection Date & Time - 12/23/2024 09:54 AM)? Normal* Value Reference Range V itamin D 25-Hydroxy 66.1 30.0-100.0 - ng/mL 3.?Iron deficiency anemia, unspecified iron deficiency anemia type?LAB: P-Comprehensive Metabolic Panel (CMP) (Collection Date & Time - 12/23/2024 09:54 AM)?glu 116* Value Reference Range A /G Ratio 2.0 1.1-2.5 - * A lbumin 4.9 3.5-5.3 - g/dL * A lkaline Phosphatase 46 35-121 - IU/L * A LT (SGPT) 13 <5-47 - IU/L * A ST (SGOT) 17 <5-40 - IU/L * B ilirubin, Total 0.5 <0.2-1.2 - mg/dL * B UN 9 6-20 - mg/dL * C alcium 9.8 8.6-10.4 - mg/dL * C hloride 101 97-108 - mmol/L * C O2 26 20-32 - mmol/L * C reatinine 0.75 0.50-1.00 - mg/dL * G lucose 116 H 65-99 - mg/dL * P otassium 4.2 3.5-5.3 - mmol/L * S odium 138 135-145 - mmol/L * P rotein 7.4 6.0-8.3 - g/dL * e GFR by Creatinine 106 >59 - mL/min/1.73m2 ?LAB: P-Iron (Collection Date & Time - 12/23/2024 09:54 AM)?167* Value Reference Range I jairo 167 H 37-145 - ug/dL * Labs: * L ab: CBC Fingerstick (in house) (Collection Date & Time - 12/23/2024) Value Reference Range w bc 8.4 3.5 - 10 * l ym 31.3 15 - 50 * m id 5.1 2 - 15 * g ran 63.6 35 - 80 * r bc 4.73 3.5 - 5.5 * h gb 13.7 11.5 - 16.5 * h ct 40.5 35 - 55 * m cv 85.5 75 - 100 * m ch 29.1 25 - 35 * m chc 34.0 31 - 38 * p lat 215 100 - 400 * Lore Iglesias 12/23/2024 11:2 5:02 AM EDT > Provider reviewed results while patient in office. * Procedure Codes: 3 6416 CAPILLARY BLOOD DRAW * Images: Billing Information: * Visit Code: * Procedure Codes: 52478 CAPILLARY BLOOD DRAW. * Electronic signature of KENYETTA Griffin on 05/02/2025 at 08:38 AM EST Sign off status: Pending * Provider: KENYETTA Long Date: 0 12/23/2024 Generated for Adeline ng/Faroman/eTransmitting on: 1 08:38 AM EST
--- OUTSIDE RECORDS SUMMARY | 2025-02-24 03:45 | XMS_ITS ---
Author Organization [facility] Address [address] [facility] [address] [place] [id number] Care Team Providers Care Harness And Bag Inspector Name Role Phone Latonia Braun Primary Care Provider [phone] JamesRanda terrell Unavailable [phone] Results Component Value Reference Range Notes P-Comprehensive Metabolic Pa leora (CMP) Reviewed date:02/26/2025 11:03:40 AM Interpretation: Performing Lab: Notes/Report: Test performed by [facility] [address] [place], [place] [address] [place] , [address], [place] [address] Brian Banuelos MD, Electrical Tech CLIA: [id number] Sodium 141 135-145 mmol/L Potassium 4.4 3.5-5.3 mmol/L Chloride 102 97-108 mmol/L CO2 26 20-32 mmol/L Glucose 96 65-99 mg/dL BUN 9 6-20 mg/dL Creatinine 0.79 0.50-1.00 mg/dL Calcium 9.6 8.6-10.4 mg/dL eGFR by Creatinine 99 >59 mL/min/1.73m2 Protein 7.2 6.0-8.3 g/dL Albumin 4.6 3.5-5.3 g/dL Alkaline Phosphatase 46 35-121 IU/L ALT (SGPT) 9 <5-47 IU/L AST (SGOT) 14 <5-40 IU/L Bilirubin, Total 0.4 <0.2-1.2 mg/dL A/G Ratio 1.8 1.1-2.5 P-Vitamin D, 1, 25 Dihydroxy Reviewed date:02/26/2025 11:03:40 AM Interpretation: Performing Lab: Notes/Report: Test performed by [facility] [address] [facility] , [address], [place] [address] Brian Banuelos MD, Electrical Tech CLIA: [id number] Vitamin D, 1, 25 Dihydroxy 92.0 19.9-79.3 pg/m L REASON FOR VISIT Blood Draw Medications Medication SIG (Take, Route, Frequency, Duration) Notes Start Date End Date Status Singulair 10 MG 1 tablet Orally Once a day; Duration: 90 days Active Terbinafine HCl 250 MG 1 tablet Orally O nce a day 01/27/2025 Active Estarylla 0.25-35 MG-MCG TAKE ONE TABLET BY MOUTH EVERY DAY; Duration: 28 Active Flonase Allergy Relief 50 MCG/ACT 1 spray in each nostril Nasally Once a day 11/21/2022 Active Buprenorphine HCl-Naloxone HCl 8-2 MG 1.5 tab(s) sublingually once a day Active Pantoprazole Sodium 40 mg TAKE ONE TABLE T BY MOUTH TWICE DAILY Orally Two times a day; Duration: 90 days Active Vitamin D3 50 MCG (2000 UT) 1 tablet Ora lly Once a day; Duration: 90 days Active Triamcinolone Acetonide 0.5 % 1 jade Externally 3 times a day 02/15/2022 Active Encounters Encounter Location Date Provider Diagnosis [facility] [address] [place] [id number] 02/24/2025 Randa Robb USP use of chris matthew Z79.899 and Vitamin D deficiency E55.9 Assessments Encounter Date Diagnosis (ICD Code) Assessment Notes Treatment Notes Treatment Clinical Notes Section Notes 02/24/2025 USP use of drug (ICD-10 - Z79.899) 02/24/2025 Vitamin D deficiency (ICD-10 - E55.9) Plan Of Treatment No Information Progress Notes * Lesli SHIELDSDOB:1990 (34 yo F)Acc No.[id number]:02/24/2025 Patient: Lesli FLETCHER Provider: KENYETTA Long :1990 A ge:34 Y S ex:Female Date:02/24/2025 Address:[address] [place] [address] [facility] Pcp:R Thuan Aparna Subjective: * Chief Complaints: * 1 . Blood Draw. * Medical History: * Medications: T aking Buprenorphine HCl-Naloxone HCl 8-2 MG Tablet Sublingual 1.5 tab(s) sublingually once a day , Taking Flonase Allergy Relief 50 MCG/ACT Suspension 1 spray in each nostril Nasally Once a day , Taking Triamcinolone Acetonide 0.5 % Cream 1 jade Externally 3 times a day , Taking Vitamin D3 50 MCG (2000 UT) Tablet 1 tablet Orally Once a day , Taking Pantoprazole Sodium 40 mg Tablet Delayed Release TAKE ONE TABLET BY MOUTH TWICE DAILY Orally Two times a day , Taking Estarylla 0.25-35 MG-MCG Tablet TAKE ONE TABLET BY MOUTH EVERY DAY , Taking Terbinafine HCl 250 MG Tablet 1 tablet Orally Once a day , Taking Singulair 10 MG Tablet 1 tablet Orally Once a day , Medication List reviewed and reconciled with the patient Objective: * Vitals: Assessment: * Assessment: 1. L ita term use of drug - Z79.899 2 . V itamin D deficiency - E55.9 ? Plan: * Treatment: Value Reference Range A /G Ratio 1.8 1.1-2.5 - * A lbumin 4.6 3.5-5.3 - g/dL * A lkaline Phosphatase 46 35-121 - IU/L * A LT (SGPT) 9 <5-47 - IU/L * A ST (SGOT) 14 <5-40 - IU/L * B ilirubin, Total 0.4 <0.2-1.2 - mg/dL * B UN 9 6-20 - mg/dL * C alcium 9.6 8.6-10.4 - mg/dL * C hloride 102 97-108 - mmol/L * C O2 26 20-32 - mmol/L * C reatinine 0.79 0.50-1.00 - mg/dL * G lucose 96 65-99 - mg/dL * P otassium 4.4 3.5-5.3 - mmol/L * S odium 141 135-145 - mmol/L * P rotein 7.2 6.0-8.3 - g/dL * e GFR by Creatinine 99 >59 - mL/min/1.73m2 * Lesli Shields 02/26/2025 11 :03:29 AM EDT > pt informed 2.?Vitamin D deficiency?LAB: P-Vitamin D, 1, 25 Dihydroxy (Collection Date & Time - 02/24/2025 08:17 AM)* Value Reference Range V itamin D, 1, 25 Dihydroxy 92.0 H 19.9-79.3 - pg /mL * Lesli Shields 02/26/2025 11 :03:29 AM EDT > pt informed * Images: Billing Information: * Visit Code: * Procedure Codes: * Electronic signature of KENYETTA Griffin on 05/02/2025 at 08:39 AM EST Sign off status: Pending * Provider: KENYETTA Long Date: 1 Generated for Adeline walker/Cyndie/Osmany on: 08:39 AM EST
--- OUTSIDE RECORDS SUMMARY | 2025-03-29 06:30 | XMS_ITS ---
Author Organization [facility] Address [address] [place] [id number] Care Team Providers Care Medical Management Trainer Name Role Phone Latonia Braun Primary Care Provider Soledad Sanchez [phone] Allergies No Known Allergies Results Component Value Reference Range Notes Ultrasound : Breast, left Reviewed date:04/20/2025 11:58:45 AM Interpretation: Performing Lab: Notes/Report: Ultrasound : Breast, right Reviewed date:04/20/2025 11:59:24 AM Interpretation: Performing Lab: Notes/Report: Mammogram Reviewed date:04/20/2025 12:54:31 PM Interpretation: Performing Lab: Notes/Report: REASON FOR VISIT Left Breast Tender Medications Medication SIG (Take, Route, Frequency, Duration) Notes Start Date End Date Status Flonase Allergy Relief 50 MCG/ACT 1 spray in each nostril Nasally Once a day 11/21/2022 Active Buprenorphine HCl-Naloxone HCl 8-2 MG 1.5 tab(s) sublingually once a day Active Triamcinolone Acetonide 0.5 % 1 jade Externally 3 times a day 02/15/2022 Active Terbinafine HCl 250 MG 1 tablet Orally O nce a day; Duration: 30 days Active Singulair 10 MG 1 tablet Orally Once a day; Duration: 90 days Active Estarylla 0.25-35 MG-MCG TAKE ONE TABLET BY MOUTH EVERY DAY; Duration: 28 Active Pantoprazole Sodium 40 mg TAKE ONE TABLE T BY MOUTH TWICE DAILY Orally Two times a day; Duration: 90 days Active Vital Signs Blood pressure systolic 112 mm Hg 03/29/20 Blood pressure diastolic 70 mm Hg 025 Heart Rate 78 /min 03/29/2025 Height 60 in 03/29/2025 Weight 110.6 lbs 03/29/2025 BMI 21.6 kg/m2 03/29/2025 Encounters Encounter Location Date Provider Diagnosis [facility] [address] [place] [id number] 03/29/2025 Soledad Sanchez Breast cancer screening Z12.39 ; Family history of breast cancer in female Z80.3 ; Breast pain, left N64.4 and Abnormal ultrasound of breast R92.8 Assessments Encounter Date Diagnosis (ICD Code) Assessment Notes Treatment Notes Treatment Clinical Notes Section Notes 03/29/2025 Breast cancer screening (ICD-10 - Z12.39) 03/29/2025 Family history of breast cancer in female (ICD-10 - Z80.3) 03/29/2025 Breast pain, left (ICD-10 - N64.4) supportive, comfortable bra 03/29/2025 Abnormal ultrasound of breast (ICD-10 - R92.8) Plan Of Treatment Treatment Notes Assessment Notes Breast pain, left supportive, comforta ble bra Next Appt Details Follow Up: prn, Reason: Progress Notes * Lesli SHIELDSDOB:1990 (34 yo F)Acc No.[id number]:03/29/2025 Progress Notes Patient: Lesli FLETCHER Provider: TUAN Espinoza :1990 A ge:34 Y S ex:Female Date:03/29/2025 Address:[address] [place] [address] [facility] Pcp:Latonia Braun Subjective: * Chief Complaints: * 1 . Left Breast Tender. * HPI: G YN: 34 year old female presents with c/o breast complaints P t presents today with c/o tenderness in the left breast/nipple area since Friday. Pt does have Hx of benign cyst in left breast. Pt does have a family history of breast disease and breast cancer which all involved the left breast. Pt had US in February 2024 that showed a likely benign cyst that recommended a 6-month follow up that did not happen. * ROS: D ERMATOLOGY: no R keila. n o H dex. G ASTROENTEROLOGY: no N ausea. n o V omiting. n o D iarrhea.? U ROLOGY: no D ifficulty urinating. n o B lood in urine. * Medical History: C olitis. * Surgical History: C luis m MILES 2014, EGD - [facility] 01/26/2023. * Hospitalization/Major Diagno stic Procedure: [facility] - Child 08/31/2005, [facility] - Blood Infection 01/2016, [facility] - Child 12/17/2017, [facility] ER to [facility] - Esophogeal Spasms [...] TABLET BY MOUTH EVERY DAY , Taking Singulair 10 MG Tablet 1 tablet Orally Once a day , Taking Terbinafine HCl 250 MG Tablet 1 tablet Orally Once a day , Discontinued Vitamin D3 50 MCG (1999 UT) Tablet 1 tablet Orally Once a day , Medication List reviewed and reconciled with the patient * Allergies: N .K.D.A. Objective: * Vitals: W t: 110.6, Temp: 97.9, BP: 112/70, HR: 78, O2 Sat: 97% on RA, Nurse: SF, Ht: 60, BMI:21.6. * Examination: G eneral Examination: General Appearance: N AD, appears healthy, well nourished and hydrated. N eurologic Exam: a lert and oriented. G YN: Breasts: N ipples unremarkable, no drainage, no signs of mastitis, no dimpling, no skin changes, bilateral, symmetrical; soft tissue tenderness left upper outer breast, no lymph nodes palpable. Assessment: * Assessment: 1. B reast cancer screening - Z12.39 (Primary) 2 . F amily history of breast cancer in female - Z80.3 3 . B reast pain, left - N64.4 4 .?Abnormal ultrasound of breast - R92.8 S pecify :left breast Plan: * Treatment: 2.?Breast pain, left? Notes: supportive, comfortable bra??3.?Abnormal ultrasound of breast?Imaging: Ultrasound : Breast, left (Performed Date - 04/15/2025)* Soledad Sanchez 12:16:07 PM EST >breast painTaylBrittany celeste 03/29/2025 12:25:59 PM EST > faxed to [facility] Soledad Parmar 04/20/2025 11:58:21 AM EST >results discussed with Gill ?Imaging: Ultrasound : Breast, right (Performed Date - 04/15/2025)* Soledad Sanchez 12:16:07 PM EST >breast painTaylorBrittany 03/29/2025 12:25:33 PM EST > faxed to [facility] Soledad Parmar 04/20/2025 08:40:26 AM EST >discussed results with Gill * Follow Up: p rn * Images: Billing Information: * Visit Code: 22186 Office Visit, Est Pt., Level 3. 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 Pt does have Hx of benign cyst in left breast. Pt does have a family history of breast disease and breast cancer which all involved the left breast. 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
--- OUTSIDE RECORDS SUMMARY | 2025-04-19 04:40 | XMS_ITS ---
Author Organization [facility] Address [address] [facility] [address] [facility] [address] [place] [phone] Care Team Providers Care Ecological Risk Assessor Name Role Phone Latonia Braun Primary Care Provider [phone] Randa Robb [phone] Results Component Value Reference Range Notes TEN-Vaginal Infection panel Reviewed date:04/22/2025 09:03:44 AM Interpretation:Abnormal Performing Lab: Notes/Report: Abnormal REASON FOR VISIT Order Encounters Encounter Location Date Provider Diagnosis [facility] [address] [facility] [address] [facility] [address] [place] [id number] 04/19/2025 Randa Robb Acute vaginitis N76. 0 Assessments Encounter Date Diagnosis (ICD Code) Assessment Notes Treatment Notes Treatment Clinical Notes Section Notes 04/19/2025 Acute vaginitis (ICD-10 - N76.0) Plan Of Treatment No Information Progress Notes * Lesli SHIELDSDOB:1990 (34 yo F)Acc No.[id number]:04/19/2025 Patient: Lesli FLETCHER :1990 A ge:34 Y S ex:Female Address: [place] [address] Subjective: * Chief Complaints: * O rder * Medical History: * Surgical History: * Hospitalization/Major Diagno stic Procedure: * Medications: Objective: * Vitals: * Physical Examination: Assessment: * Assessment: 1. A cute vaginitis - N76.0 Plan: * Treatment: * Procedure Codes: * true * Date: Generated for Printi ng/Faxing/eTransmitting on: 08:39 AM EST
--- OUTSIDE RECORDS SUMMARY | 2025-05-02 08:39 | XMS_ITS | Clinical Summary ---
Author Organization [facility] Address [address] [place] [address] Care Team Providers Care Looping Inspector Name Role Phone Thuan Braun MD Primary Care Provider [phone] Allergies Active Allergy Reactions Criticality Noted Date Comments Tape/Bandaid Adhesive Rash Low 01/26/2023 Clear tape Medications buprenorphine-nal oxone (Suboxone) 8-[address] 1.25 tablets under the tongue 1 (one) time each day. Active Paxlovid Oral Therapy Pack See administration instructions. follow package directions Active Zafemy 150-35 MCG/24HR apply 1 PATCH TO THE SKIN ONCE A WEEK FOR 3 WEEKS of a 4 WEEKS CYCLE -- FOR EXTERNAL USE ONLY-- Active triamcinolone (Kenalog) 0.1 % cream Apply 1 Application topically 3 (three) times a day. To Affected Areas Active omeprazole (PriLOSEC) [address] capsule Take 1 capsule (40 mg) by mouth 1 (one) time each day. Active bismuth subsalicylate (Pepto Bismol) 262 MG chewable tablet Chew 2 tablets (524 mg) 4 (four) times a day (before meals and nightly). Active calcium carbonate (Tums) 500 MG chewable tablet Chew 1 tablet (500 mg) 1 (one) time each day. Active isosorbide dinitrate (Isordil) 10 MG tablet Use 1 tablet three times per day as needed 30 tablet 01/28/20 23 Active Active Problems Problem Noted Date Diagnosed Date Esophageal dysmotility 01/27/2023 Resolved Problems Problem Noted Date Diagnosed Date Resolved Date Dysphagia 01/26/2023 01/27/2023 Immunizations Immunization Administration Dates Next Due Hep A, Adult 09/30/2018,03/11/2018 Family History Medical History Relation Name Comments Alcohol abuse Father Hepatitis Father Alcohol abuse Other 1 Diabetes Other 2 Emphysema Other 3 Hypertension Other 4 Skin cancer Sister Relation Name Status Comments Father Other 1 Other 2 Other 3 Other 4 Sister Social History Tobacco Use Types Packs/Day Years Used Date Smoking Tobacco: Every Day Alcohol Use Standard Drinks/Week Comments No 0 (1 standard drink = 0.6 oz pur e alcohol) CAGE ASSESSMENT Answer Date Recorded Cage unable to access Not on file 01/26/2023 Cage max number of drinks Not on file 2022 Cage Beverages a week Not on file 01/26/2023 Have you ever felt you should CUT down on your d rinking? 0 01/26/2023 Have you been ANNOYED by people criticizing your drinking? 0 01/26/2023 Have you felt GUILTY about your drinking? 0 01/26/2023 Have you had a drink first t ferdinand in the morning ([employer]) to steady your nerves or to get rid of a hangover? 0 01/26/2023 CAGE Questionnaire Score 0 023 Comments Unknown Sex and Gender Information Value Date Recorded Sex Assigned at Not on file Legal Sex Female 8:42 PM EDT Gender Identity Not on file Sexual Orientation Not on file Last Filed Vital Signs Vital Sign Reading Time Taken Comments Blood Pressure 120/76 01/27/2023 12:16 PM EDT Pulse 76 01/27/2023 12:16 PM EDT Temperature 36.4 C (97.6 F) 01/27/2023 10:46 AM EDT Respiratory Rate 15 01/27/2023 10:15 AM EDT Oxygen Saturation 99% 01/27/2023 12:16 PM EDT Inhaled Oxygen Concentration - - Weight 53.6 kg (118 lb 2.7 oz) 01/26/2023 5:10 P M EDT Height 152.4 cm (5') 01/26/2023 5:10 PM EDT Body Mass Index 23.08 01/26/2023 5:10 PM EDT Plan of Treatment Health Maintenance Due Date Last Done Comments [facility]-Depression Screening 1988 [facility]-Infant/Child/Adol SDOH Screenings 1990 [facility]- SDOH Screenings 2006 [facility]-Adult SDOH Screenings 2006 [facility]-Pap Smear 2009 [facility]-Cervical Cancer Screening 2018 [facility]-HPV/Cotest 2018 [facility]-Varicella Vaccines (2 of 2 - 13+ 2-dose series) 03/14/2021 02/14/2021 [id number] Vaccine (1 - 2024- season) 2025 [facility]-Influenza Vaccine (#1) 01/03/202502/14, 03/24/2018, 03/04/2007 [facility]-DTaP,Tdap,and Td Vaccines (8 - Td or Tdap) 02/14/2031 02/14/2021, 09/05/2010, 11/30/1992, Additional history exists [facility]-Zoster Vaccines (1 of 2) 2038 02/14/2021 [facility]-HIB Vaccines Completed 03/19/1990 [facility]-IPV Vaccines Aged Out 11/30/1992, , 08/25/1989, Additional history exists No longer eligible based on patient's age to complete this topic [facility]-Hepatitis B Vaccines Completed 006, 03/25/2000, 02/19/2000 HPV Vaccines Completed 03/18/2011, 09/2010, 09/05/2010 [facility]-Hepatitis A Vaccines Aged Out 09/30/2018, 11/2017 No longer eligible based on patient's age to complete this topic [facility]-HIV Screening Completed 01/26/2023, 06/24/2017 [facility]-Hepatitis C Screening Completed 2022, 01/26/2023, 06/10/2019, Additional history exists [facility]-Pneumococcal Vaccine: Pediatrics (0 to 5 Years) and At-Risk Patients (6 to 49 Years) Aged Out No longer eligible based on patient's age to complete this topic [facility]-Rotavirus Vaccines Aged Out No lo nger eligible based on patient's age to complete this topic Procedures Procedure Name Priority Date/Time Associated Diagnosis Comments ACUTE HEPATITIS PANEL Routine 01/26/2023 5:48 PM EDT HIV 1/2 ANTIBODY/ANTIGEN SCREEN WITH REFLEX TO HIV I/II DIFFERENTIATION Routine 01/26/2023 5:48 PM EDT from Last 3 Months or Most Recently Relevant to Health Maintenance Results * HIV 1 & 2 Antibody/Antigen Screen (01/26/2023 5:48 PM EDT) Pathologist [facility] HIV 1 & 2 Antibody/Antigen Screen Non Reactive Non Reactive 01/26/2023 6:59 PM EDT [facility] Comment:Screening for HIV 1 & 2 antibodies, and P24 antigen is NONREACTIVE. No confirmatory testing is required. Blood Venous blood specimen / Unknown Venipuncture / Unknown 01/26/2023 5:48 PM EDT 01/26/2023 6:09 PM EDT Reema Dionna Palacios SALT PLANT OPERATOR, DNP LAB BLOOD ORD ERABLES Final Result Performing Organization Address [facility] Co de Phone Number HEALTHCARE [facility] [address] [place] [address] * (ABNORMAL) Hepatitis panel, acute (01/26/2023 5:48 PM EDT) Pathologist [facility] Hepatitis B Surf Antigen Negative Negative 01/26/2023 7:52 PM EDT [facility] Hepatitis C Antibody Positive(A) Negative 01/26/2023 7:52 PM EDT [facility] Comment:This specimen is brittany ng sent for confirmation by RT-PCR. Hepatitis A Antibody IgM Negative Negative 01/26/2023 7:52 PM EDT [facility] Hepatitis B Core Antibody IgM Negative Negative 01/26/2023 7:52 PM EDT [facility] Blood Venous blood specimen / Unknown Venipuncture / Unknown 01/26/2023 5:48 PM EDT 01/26/2023 6:09 PM EDT Reema Villareal Isabel Palacios SALT PLANT OPERATOR, DNP LAB BLOOD ORD ERABLES Final Result Performing Organization Address City/[facility]/ZIP Co de Phone Number HEALTHCARE LAB [address] [place] [address] from Last 3 Months or Most Recently Relevant to Health Maintenance Insurance [facility] MEDICAID Advance Directives * Full Code (Latest Code Status on File) Date Activated Date Inactivated Comments 01/26/2023 4:17 PM 01/27/2023 8:04 PM Question Answer Comments Patient has decision-making capacity? Yes Care Teams Looping Inspector Relationship Specialty Start Date End Date Thuan Braun MD [facility] [id number] PCP - General 01/28/23
--- OUTSIDE RECORDS SUMMARY | 2025-05-02 08:39 | XMS_ITS | Patient Health Record ---
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 Gr. 1.025 Ketone trace Bili 1+ Gluc neg TEN-UTI panel Reviewed date:06/16/2024 02:46:46 PM Interpretation:Negative Performing Lab: Notes/Report: Negative CBC Fingerstick (in house) Reviewed date:12/23/2024 01:17:48 [...] 116 Performing Lab: Notes/Report: Test performed by [place] [employer] [facility] , [address], [place] [address] Brian Banuelos MD, Photonic Laboratory Technician CLIA: [id number] Sodium 138 135-145 mmol/L Potassium 4.2 3.5-5.3 [...] 0.5 <0.2-1.2 mg/dL A/G Ratio 2.0 1.1-2.5 H-O-Xyephyze Protein (CRP) Reviewed date:12/24/2024 09:09:27 AM Interpretation:Normal Performing Lab: Notes/Report: Test performed by [employer] [address] [place] [address] , [facility] [place] [address] Brian Banuelos MD, Photonic Laboratory Technician CLIA: [id number] C-Reactive Protein (CRP) 0.19 <0.50 mg/dL P-Iron Reviewed date:12/24/2024 09:09:27 AM Interpretation:167 Performing Lab: Notes/Report: Test performed by [employer] [address] [place] [address] , [place] [address] Brian Banuelos MD, Photonic Laboratory Technician CLIA: [id number] Iron 167 37-145 ug/dL P-Vitamin D 25-Hydroxy Reviewed date:12/24/2024 09:09:27 AM Interpretation:Normal Performing Lab: Notes/Report: Test performed by [employer] [address] [place] [address] , [address], [place] [address] Brian Banuelos MD, Photonic Laboratory Technician CLIA: [id number] Vitamin D 25-Hydroxy 66.1 30.0-100.0 ng/mL Interpretation of Vitamin D 25 [place]: < 20 ng/mL - Deficiency 20 - 29 ng/mL - Insufficiency 30 - 100 ng/mL - Sufficiency > 100 ng/mL - Super-therapeutic- toxicity may occur above this level. Clinical correlation required. Ultrasound : Breast, left Reviewed date:04/20/2025 11:58:45 AM Interpretation: Performing Lab: Notes/Report: Ultrasound : Breast, right Reviewed date:04/20/2025 11:59:24 AM Interpretation: Performing Lab: Notes/Report: Mammogram Reviewed date:04/20/2025 12:54:31 PM Interpretation: Performing Lab: Notes/Report: P-Vitamin D 25-Hydroxy Reviewed date:06/04/2024 03:09:31 PM Interpretation: Performing Lab: Notes/Report: Test performed by [employer] [address] [place] [address] , [address], [place] [address] Brian Banuelos MD, Photonic Laboratory Technician CLIA: [id number] Vitamin D 25-Hydroxy 22.4 30.0-100.0 ng/mL Interpretation of Vitamin D 25 OH: < 20 ng/mL - Deficiency 20 - 29 ng/mL - Insufficiency 30 - 100 ng/mL - Sufficiency > 100 ng/mL - Super-therapeutic- toxicity may occur above this level. Clinical correlation required. P-TSH reflex to FT4 Reviewed date:06/04/2024 03:09:31 PM Interpretation: Performing Lab: Notes/Report: Test performed by [employer] [address] [place] [address] , [address], [place] [address] Brian Banuelos MD, Photonic Laboratory Technician CLIA: [id number] TSH reflex to FT4 1.03 0.43-5.25 mU/L P-Magnesium Reviewed date:06/04/2024 03:09:31 PM Interpretation: Performing Lab: Notes/Report: Test performed by [employer] [address] [place] [address] , [address], [place] [address] Brian Banuelos MD, Photonic Laboratory Technician CLIA: [id number] Magnesium 1.9 1.6-2.4 mg/dL P-Iron Reviewed date:06/04/2024 03:09:31 PM Interpretation: Performing Lab: Notes/Report: Test performed by [employer] [address] [place] [address] , [address], [place] [address] Brian Banuelos MD, Photonic Laboratory Technician CLIA: [id number] Iron 30 37-145 ug/dL P-Ferritin Reviewed date:06/04/2024 03:09:31 PM Interpretation: Performing Lab: Notes/Report: Test performed by [employer] [address] [place] [address] , [address], [place] [address] Brian Banuelos MD, Photonic Laboratory Technician CLIA: [id number] Ferritin 76.9 13.0-150.0 ng/mL [facility] Reviewed date:06/04/2024 03:09:31 PM Interpretation: Performing Lab: Notes/Report: Test performed by [employer] [address] [place] [address] , [address], [place] [address] Brian Banuelos MD, Photonic Laboratory Technician CLIA: [id number] Erythrocyte Sedimentation Rate (ESR), Automated 15 <26 mm/hr Rheumatoid Factor <10 <14.1 IU/mL C-Reactive Protein (CRP) 2.91 <0.50 mg/dL Antinuclear Antibodies (KRISTAL) Screen, Reflex KRISTAL 9 Panel Negative Negative This test is performed by Multiplex Bead Immunoassay methodology. Antinuclear Antibodies (KRISTAL) Result Note SEE COMMENT For positive Autoantibodies, please refer to the interpretive chart here: [email or web address] CCP Antibodies <0.5 <0.5-3.0 U/mL P-CPK Reviewed date:06/04/2024 03:09:31 PM Interpretation: Performing Lab: Notes/Report: Test performed by [employer] [address] [place] [address] , [address], [place] [address] Brian Banuelos MD, Photonic Laboratory Technician CLIA: [id number] Creatine Kinase 46 20-180 U/L P-Comprehensive Metabolic Pa leora (CMP) Reviewed date:06/04/2024 03:09:31 PM Interpretation: Performing Lab: Notes/Report: Test performed by [employer] [address] [place] [address] , [address], [place] [address] Brian Banuelos MD, Photonic Laboratory Technician CLIA: [id number] Sodium 142 135-145 mmol/L Potassium 4.1 3.5-5.3 [...] <0.2 <0.2-1.2 mg/dL A/G Ratio 1.8 1.1-2.5 P-Vitamin B12 Reviewed date:06/04/2024 03:09:31 PM Interpretation: Performing Lab: Notes/Report: Test performed by [facility] [employer] [address] [place] [address] , [address] , [place] [address] Brian Banuelos MD, Photonic Laboratory Technician CLIA: [id number] Vitamin B12 517 421-4359 pg/mL CBC Venipuncture (in house) Reviewed date:06/04/2024 08:56:17 [...] - 38 platlet 144 100 - 400 CBC Fingerstick (in house) Reviewed date:05/14/2024 12:28:16 [...] - 38 plat 135 100 - 400 CBC Fingerstick (in house) Reviewed date:07/12/2024 12:21:56 [...] - 38 plat 106 100 - 400 P-Comprehensive Metabolic Pa leora (CMP) Reviewed date:02/26/2025 11:03:40 AM Interpretation: Performing Lab: Notes/Report: Test performed by [employer] [address] [place] [address] , [address], [place] [address] Brian Banuelos MD, Photonic Laboratory Technician CLIA: [id number] Sodium 141 135-145 mmol/L Potassium 4.4 3.5-5.3 [...] Interpretation: Performing Lab: Notes/Report: Test performed by [employer] [address] [place] [address] , [address], [place] [address] Brian Banuelos MD, Photonic Laboratory Technician CLIA: [id number] Vitamin D, 1, 25 Dihydroxy 92.0 19.9-79.3 pg/m L TEN-Vaginal Infection panel Reviewed date:04/22/2025 09:03:44 AM Interpretation:Abnormal Performing Lab: Notes/Report: Abnormal Reason For Referral No Information Medications Medication SIG (Take, Route, Frequency, Duration) Notes Start Date End Date Status Estarylla 0.25-35 MG-MCG TAKE ONE TABLET BY MOUTH EVERY DAY; Duration: 28 Active Pantoprazole Sodium 40 mg TAKE ONE TABLE T BY MOUTH TWICE DAILY Orally Two times a day; Duration: 90 days Active Flonase Allergy Relief 50 MCG/ACT 1 spray in each nostril Nasally Once a day 11/21/2022 Active Buprenorphine HCl-Naloxone HCl 8-2 MG 1.5 tab(s) sublingually once a day Active Triamcinolone Acetonide 0.5 % 1 jade Externally 3 times a day 02/15/2022 Active Terbinafine HCl 250 MG 1 tablet Orally O nce a day; Duration: 30 days Active metroNIDAZOLE 500 MG 1 tablet Orally twi ce a day; Duration: 10 days 04/22/2025 Active Singulair 10 MG 1 tablet Orally Once a day; Duration: 90 days Active Immunizations Vaccine Route Administration Date Status Comme nts Fluzone PF Quad (6-35 months) Unknown 03/24/2018 Administered Fluzone PF Quad (6-35 months) Unknown 02/14/2021 Administered Fluzone Quad (6months&older) IM Intramuscular 04/11/2022 Administered Hepatitis A (adult) Unknown 03/11/2018 Administered Hepatitis A (adult) Unknown 09/30/2018 Administered MMR Unknown 03/19/1990 Administered MMR Unknown 02/19/2000 Administered Tetanus Tdap-Adacel (over 7yrs) Unknown 09/05/2010 Administered Tetanus Tdap-Adacel (over 7yrs) Unknown 02/14/2021 Administered Varivax Unknown 02/14/2021 Administered xFluzone (6mos and older)-trivalent Unknown 03/04/2007 Administered xGardasil Unknown 09/05/2010 Administered xGardasil Unknown 12/07/2010 Administered xGardasil Unknown 03/18/2011 Administered Problems Problem Type SNOMED Code ICD Code Onset Dates Problem Status W/U Status Risk Notes Problem Gastroesophageal reflux disease (065229107) GERD (gastroesophagea l reflux disease) (K21.9) Active confirmed Problem Vitamin D deficiency (01062682) Vitamin D deficiency (E55.9) Active confirmed Problem Constipation (35526401) Constipation (K59.00) Active confirmed Problem Paresthesia (39403249) Paresthesia (R20.2) Active confirmed Problem Fear of flying (388403912) 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 confirmed Problem C-reactive protein abnormal (006976995) Elevated C-reactive protein (CRP) (R79.82) Active confirmed Problem Iron deficiency anemia (18000666) Iron deficiency anemia, unspecified iron deficiency anemia type (D50.9) Active confirmed Problem Esophageal spasm (94763132) Esophageal spasm (K22.4) Active confirmed Problem Lymphocytosis (64029299) Lymphocytosis (D72.820) Active confirmed Problem Irregular menstrual cycle (82697169) Irregular menstrual cycle (N92.6) Active confirmed Problem History of hepatitis C (59182903052961) History of hepatitis C (Z86.19) Active confirmed Vital Signs Heart Rate 78 /min 03/29/2025 Blood pressure diastolic 70 mm Hg 03/29/2025 Height 60 in 03/29/2025 Blood pressure systolic 112 mm Hg 03/29/2025 Weight 110.6 lbs 03/29/2025 BMI 21.6 kg/m2 03/29/2025 Encounters Encounter Location Date [facility] [address] [id number] 05/14/2024 Randa Crowdy Non-recurrent acute serous otitis media of right ear H65.01 and Acute URI J06.9 [facility] [address] [id number] 06/03/2024 Randa Crowdy Esophageal spasm K22 .4 ; GERD (gastroesophageal reflux disease) K21.9 ; Polyarthralgia M25.50 ; Paresthesia R20.2 ; Other fatigue R53.83 ; Iron deficiency anemia, unspecified iron deficiency anemia type D50.9 and Myalgia M79.10 [facility] 1210 [facility] [address] [id number] 06/14/2024 Randa Crowdy Dysuria R30.0 and Hematuria, unspecified type R31.9 [facility] 1210 [facility] [address], [place] [id number] 07/12/2024 Edgard [place] Acute URI J06.9 [facility] [address] [facility] [address] [place], [place] [id number] 08/02/2024 Randa Robb Iron deficiency anem ia, unspecified iron deficiency anemia type D50.9 ; Vitamin D deficiency E55.9 and Elevated C-reactive protein (CRP) R79.82 [facility] [address] [facility] [address] [place], [place] [id number] 10/28/2024 R Thuan Aparna Fear of flying F40.2 43 and Motion sickness, initial encounter T75.3XXA [facility] [address] [facility] [address] [place], [place] [id number] 12/23/2024 Randa Robb Elevated C-reactive protein (CRP) R79.82 ; Vitamin D deficiency E55.9 and Iron deficiency anemia, unspecified iron deficiency anemia type D50.9 [facility] [address] [place], [place] [id number] 02/24/2025 Randa Robb 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.899 and Vitamin D deficiency E55.9 [facility] [address] [facility] [address] [place], [place] [id number] 03/29/2025 Soledad Sanchez Breast cancer screen ing Z12.39 ; Family history of breast cancer in female Z80.3 ; Breast pain, left N64.4 and Abnormal ultrasound of breast R92.8 [facility] [address] [facility] [address] [place] [id number] 05/07/2024 R Thuan Aparna [facility] [address] [facility] [address] [place], [place] [id number] 06/04/2024 Randa Robb [facility] [address] [facility] [address] [place], [place] [id number] 06/16/2024 Randa Robb [facility] [address] [facility] [address] [place] [id number] 07/07/2024 R Thuan Aparna [facility] [address] [facility] [address] [place] [id number] 09/17/2024 R Thuan Aparna [facility] [address] [place], [place] [id number] 01/26/2025 Randa Robb [facility] [address] [place], [place] [id number] 04/19/2025 Randa Robb Acute vaginitis N76. 0 [facility] [address] [facility] [address] [place] [id number] 04/22/2025 Randa Robb Assessments Encounter Date Diagnosis (ICD Code) Assessment Notes Treatment Notes Treatment Clinical Notes Section Notes 05/14/2024 Acute URI (ICD-10 - J06.9) 05/14/2024 Non-recurrent acute serous otitis media of right ear (ICD-10 - H65.01) 06/03/2024 GERD (gastroesophageal reflux disease) (ICD-10 - K21.9) 06/03/2024 Esophageal spasm (ICD-10 - K22.4) 06/14/2024 Dysuria (ICD-10 - R30.0) 06/14/2024 Hematuria, unspecified type (ICD-10 - R31.9) 07/12/2024 Acute URI (ICD-10 - J06.9) 08/02/2024 Iron deficiency anemia, unspecified iron deficiency anemia type (ICD-10 - D50.9) 10/28/2024 Fear of flying (ICD-10 - F40.243) 10/28/2024 Motion sickness, initial encounter (ICD-10 - T75.3XXA) 12/23/2024 Elevated C-reactive protein (CRP) (ICD-10 - R79.82) 02/24/2025 [facility] use of drug (ICD-10 - Z79.899) 03/29/2025 Breast cancer screening (ICD-10 - Z12.39) 03/29/2025 Family history of breast cancer in female (ICD-10 - Z80.3) 04/19/2025 Acute vaginitis (ICD-10 - N76.0) 02/24/2025 Vitamin D deficiency (ICD-10 - E55.9) 03/29/2025 Breast pain, left (ICD-10 - N64.4) supportive, comfortable bra 12/23/2024 Vitamin D deficiency (ICD-10 - E55.9) 08/02/2024 Vitamin D deficiency (ICD-10 - E55.9) 06/03/2024 Polyarthralgia (ICD-10 - M25.50) 06/03/2024 Paresthesia (ICD-10 - R20.2) 08/02/2024 Elevated C-reactive protein (CRP) (ICD-10 - R79.82) 03/29/2025 Abnormal ultrasound of breast (ICD-10 - R92.8) 12/23/2024 Iron deficiency anemia, unspecified iron deficiency anemia type (ICD-10 - D50.9) 06/03/2024 Other fatigue (ICD-10 - R53.83) 06/03/2024 Iron deficiency anemia, unspecified iron deficiency anemia type (ICD-10 - D50.9) 06/03/2024 Myalgia (ICD-10 - M79.10) Plan Of Treatment Pending Test Test Name Order Date P-HIV 1 and 2 Antibody Screening 024 P-Hep C RNA 08/12/2023 Ultrasound Guided Biopsy: Breast, right 04/20/2025 Insurance Providers Payer Name Payer Address Payer Phone Subscriber Number Group Number Insured Name Patient Relationship to Insured Coverage Start Date Coverage End Date [facility] [address] [address] [place], [place] [phone] [id number] Lesli Shields Self - patient is the insured Medical (General) History Medical History History ICD Code Colitis Surgical History Surgery Date(Month/Year) Cervical LEEP 2014 [facility] - [facility] 01/26/2023 Hospitalization History Reason Date(Month/Year) [facility] to - Esophogeal Spasms 023 [facility] - Child 12/17/2017 [facility] - Blood Infection 01/2016 [facility] - Child Bi rth 08/31/2005
--- NOTE | 2025-05-02 08:40 | US_ITS ---
FINAL REPORT CLINICAL HISTORY: .RT BRASET 1000== DR LOZANO-- FINDINGS: ULTRASOUND-GUIDED RIGHT BREAST CORE BIOPSY TECHNIQUE: Limited images were obtained to localize region of interest. The right breast was prepped in a routine sterile fashion and locally anesthetized with 1% lidocaine. Standard written informed consent was obtained. Hypoechoic lesion was confirmed in the chest wall at 10:00. Initial plans were to perform a vacuum guided biopsy. However a 9-gauge needle would not readily pass, meeting significant resistance. A 16-gauge biopsy needle was then utilized. The 15-gauge guide needle was positioned within the outer periphery of the lesion. A total of 4 passes were made with a 16 gauge core biopsy needle. After completion of biopsy marker clip was deployed but was not readily visualized by ultrasound. For this reason a 2nd biopsy marker clip was deployed in satisfactory position. Postbiopsy mammogram showed postbiopsy changes with both clips in satisfactory position. Procedure was well tolerated . CONCLUSION: 1. Technically successful ultrasound guided core biopsy of right breast lesion as above. 2. Biopsy marker clip deployed Histopathology results reveal stromal fibrosis and sclerosing adenosis without atypia or carcinoma. Pathology is concordant with mammographic findings. Recommend 6 month sonographic follow-up as routine benign postbiopsy surveillance. Authenticated and ERN
--- NOTE | 2025-05-02 08:40 | MM_ITS ---
FINAL REPORT CLINICAL HISTORY: CLIP PLACEMENT S/P BIOPSY FINDINGS: MAMMOGRAM RIGHT TECHNIQUE: Standard digital 2-D views COMPARISON: 04/15/2025 ultrasound and diagnostic mammogram 04/15/2025 DENSITY: There are scattered areas of fibroglandular density FINDINGS: 2 biopsy marker clips are noted to be in satisfactory position. Postbiopsy changes are noted. IMPRESSION: Biopsy marker clip in good position ASSESSMENT: A post-procedure mammogram is used to confirm the position and deployment of a breast tissue marker after a biopsy RECOMMENDATION: 6 month sonographic follow-up given benign findings Authenticated and ERN
== END 2025-05-02 23:59 | disposition home or self-care (01) ==
LOC: RAD 08:35
PROVIDERS: PCP Family Medicine; Visit Provider Nurse Practitioner Family
DX: N60.31 Fibrosclerosis of right breast (principal); N60.21 Fibroadenosis of right breast
CPT/HCPCS: 19083; 77065; A4648; C2618